=== PATIENT | female | born 1955 | race American Indian/Alaskan Native ===

== ENCOUNTER 2019-06-05 10:51 | Inpatient (IN) | payer MEDICARE, OTHER ==
[~2019-06-05] VITALS: Ht 167.6 cm; Wt 99.2 kg
[2019-06-05 11:37] LABS: Hemoglobin 10.4 g/dL (11.5-16.0); Mean Corpuscular HGB 31.3 pg (26.0-34.0); Mean Corpuscular HGB Conc 33.5 g/dL (31.5-36.5); Mean Corpuscular Volume 93 fL (80-100); Mean Platelet Volume 9.6 fL (9.1-12.4); Platelet Count 326 K/mm3 (150-400); RDW Coefficient Variation 13.4 % (11.7-14.2); RDW Standard Deviation 46.3 fL (35.1-46.3); Red Blood Cell Count 3.32 M/mm3 (3.80-5.20); White Blood Cell Count 13.56 K/mm3 (4.00-11.30)
[2019-06-05 11:57] LABS: Alanine Aminotransfer (ALT/SGP 121 U/L (12-78); Albumin, Blood 2.7 g/dL (3.4-5.0); Albumin/Globulin Ratio 0.5 (0.8-1.8); Alk Phos 223 U/L (50-136); Anion Gap 9 mmol/L (6-16); Aspartate Aminotrans (AST/SGOT 61 U/L (12-37); Bilirubin, Total 1.4 mg/dL (0.1-1.0); Blood Urea Nitrogen 33 mg/dL (8-24); Bun/Creatinine Ratio 18.8 (12.0-20.0); CO2, Blood 25 mmol/L (21-32); Calcium, Blood 8.9 mg/dL (8.5-10.1); Chloride, Blood 99 mmol/L (98-108); Creatinine, Blood 1.76 mg/dL (0.40-1.00); Glomerular Filtration Rate 31 (60-); Glucose, Blood 93 mg/dL (70-99); Potassium, Blood 3.3 mmol/L (3.5-5.5); Sodium, Blood 133 mmol/L (136-145); Total Protein, Blood 7.7 g/dL (6.4-8.2); Troponin I <0.015 ng/mL (0.000-0.040)
[2019-06-05 12:27] LABS: BAND PERCENT MAN 15 % (0-8); BASOPHILS PERCENT MAN 0 % (0-2); EOSINOPHILS PERCENT MAN 0 % (0-6); LYMPHOCYTES ABSOLUTE MAN 1.62 K/mm3 (0.84-5.20); LYMPHOCYTES PERCENT MAN 12 % (21-46); MONOCYTES ABSOLUTE MAN 0.13 K/mm3 (0.16-1.47); MONOCYTES PERCENT MAN 1 % (4-13); NEUTROPHILS ABSOLUTE MAN 11.66 K/mm3 (1.96-9.15); PROMYELOCYTE ABSOLUTE MAN 0.13 K/mm3 (0.00-0.00); PROMYELOCYTE PERCENT MAN 1 % (0-0); SEG NEUTROPHILS PERCENT MAN 71 % (41-73); TOTAL CELLS COUNTED 100
[2019-06-05] MEDS ORDERED: ATORVASTATIN CA40 MG PO (12:32)
[2019-06-05] MEDS ORDERED: SYNTHROID0.2 MG PO (12:32)
[2019-06-05 13:19] LABS: Source, Urine Clean Catch
[2019-06-05 13:27] LABS: Blood, Urine 5+ (Neg); Glucose Qualitative, Urine Neg (Neg); Ketones, Urine 1+ (Neg); Leukocyte Esterase, Urine 1+ (Neg); Nitrite, Urine Pos (Neg); Protein, Urine 3+ (Neg); Urobilinogen, Urine 3+ (Normal)
[2019-06-05 13:34] LABS: Appearance, Urine Cloudy (Clear); Bilirubin, Urine 1+ (Neg); Color, Urine Orange (P-Yellow)
[2019-06-05 13:47] LABS: Amorphous Light (0-Heavy); Bacteria Many /hpf; Mucus Light (0-Heavy); Squamous Epithelial Cells Mod /hpf (Few)
[2019-06-05 14:12] LABS: Free Thyroxine 0.22 ng/dL (0.70-1.60); Magnesium, Blood 2.3 mg/dL (1.6-2.4)
[2019-06-05 14:14] LABS: Thyroid Stimulating Hormone 72.2 uIU/mL (0.360-4.800)
[2019-06-05 14:35] LABS: Triiodothyronine, Free <0.50 pg/mL (2.18-3.98)
[2019-06-05 14:47] LABS: Phosphorus, Blood 2.9 mg/dL (2.5-4.9)
--- NOTE | 2019-06-05 17:14 | NUR ---
SHIFT SUMMARY PT ADMITTED THIS SHIFT. PT ARRIVED VIA GURNEY AT 1435. PT AXO TO SELF AND FOLLOWING DIRECTIONS THOUGH IS SLOW TO RESPOND AND A POOR HISTORIAN. 92 % ON 2L. ULTRASOUND BEING DONE AT THIS TIME PER ORDERS. BED IN LOW POSITION, CALL LIGHT WITHIN REACH, BED ALARM ON.
[2019-06-05 18:10] LABS: Bilirubin, Urine Neg (Neg); Blood, Urine 5+ (Neg); Glucose Qualitative, Urine Neg (Neg); Ketones, Urine 1+ (Neg); Leukocyte Esterase, Urine Neg (Neg); Nitrite, Urine Neg (Neg); Protein, Urine 3+ (Neg); Source, Urine Clean Catch; Specific Gravity, Urine 1.015 (1.003-1.022); Urobilinogen, Urine 3+ (Normal)
[2019-06-05 18:19] LABS: Appearance, Urine Hazy (Clear); Color, Urine Amber (P-Yellow)
[2019-06-05 18:22] LABS: Squamous Epithelial Cells Many /hpf (Few)
[2019-06-05 18:23] LABS: Bacteria Mod /hpf
[2019-06-06 05:22] LABS: Hematocrit 26.8 % (33.0-51.0); Hemoglobin 8.9 g/dL (11.5-16.0); Mean Corpuscular HGB 31.3 pg (26.0-34.0); Mean Corpuscular HGB Conc 33.2 g/dL (31.5-36.5); Mean Corpuscular Volume 94 fL (80-100); Mean Platelet Volume 9.7 fL (9.1-12.4); Platelet Count 317 K/mm3 (150-400); RDW Coefficient Variation 13.7 % (11.7-14.2); RDW Standard Deviation 47.6 fL (35.1-46.3); Red Blood Cell Count 2.84 M/mm3 (3.80-5.20); White Blood Cell Count 15.04 K/mm3 (4.00-11.30)
[2019-06-06 05:38] LABS: International Normalized Ratio 1.06; Prothrombin Time Results 11.3 Sec (9.7-11.5)
[2019-06-06 05:43] LABS: Percent Saturation 15.9 % (15.0-50.0)
[2019-06-06 05:49] LABS: Albumin, Blood 2.1 g/dL (3.4-5.0); Albumin/Globulin Ratio 0.5 (0.8-1.8); Bilirubin, Total 0.7 mg/dL (0.1-1.0); Bun/Creatinine Ratio 20.9 (12.0-20.0); Creatinine, Blood 1.48 mg/dL (0.40-1.00); Globulin, Blood 4.3 g/dL (2.2-4.0); Potassium, Blood 3.6 mmol/L (3.5-5.5); Total Protein, Blood 6.4 g/dL (6.4-8.2)
--- NOTE | 2019-06-06 05:50 | NUR ---
SHIFT SUMMARY PT ALERT AND ORIENTED. VERY SLOW TO RESPOND. APPEARS APPROPRIATE WITH RESPONSES. HOWEVER, PT IS FORGETFUL. PT WAS INCONTINENT THIS EVENING. ATTENDS IN PLACE. LARGE BLISTER DISCOVERED TO PT'S LEFT THIGH. PICTURES TAKEN AND PLACED IN CHART. WHEN ASKED, PT REPORTED THAT SHE HAD "FELL AND ACCIDENTLY STRADDLED A HEATER" REPORTING THAT HER BROTHER HAD TO "PUSH HER OFF OF IT" BECAUSE SHE "WASN'T STRONG ENOUGH TO LIFT HERSELF UP". PT IS VERY WEAK AND DECONDITIONED. SKIN DRY AND FLAKY. LOTION APPLIED TO BLE'S. LUNG SOUNDS DIMINISHED. RESPIRATIONS EVEN AND UNLABORED. STARTED SHIFT ON RA BUT ENDED UP BACK ON 2 L O2 NC TO KEEP SATS >90%. NO COMPLAINTS OF PAIN. VSS. WILL CONTINUE TO MONITOR.
[2019-06-06 05:56] LABS: BAND PERCENT MAN 15 % (0-8); BASOPHILS PERCENT MAN 0 % (0-2); EOSINOPHILS PERCENT MAN 0 % (0-6); LYMPHOCYTES ABSOLUTE MAN 1.05 K/mm3 (0.84-5.20); LYMPHOCYTES PERCENT MAN 7 % (21-46); METAMYELOCYTE ABSOLUTE MAN 0.15 K/mm3 (0.00-0.00); METAMYELOCYTE PERCENT MAN 1 % (0-0); MONOCYTES PERCENT MAN 0 % (4-13); MYELOCYTE ABSOLUTE MAN 0.15 K/mm3 (0.00-0.00); MYELOCYTE PERCENT MAN 1 % (0-0); NEUTROPHILS ABSOLUTE MAN 13.68 K/mm3 (1.96-9.15); SEG NEUTROPHILS PERCENT MAN 76 % (41-73); TOTAL CELLS COUNTED 100
--- NOTE | 2019-06-06 11:17 | NUR ---
Spiritual care visit conducted. Patient openly shares about her medical history, her family unit complications and her spiritual journey. Patient tells me about some of her concerns moving forward and about some of her spiritual needs. I listen empathically, normalize patient's experience and provide spiritual guidance, grief support, anxiety containment and prayer. Patient responds well and displays evidence of reduced stress. I also gave patient an Advance Directive booklet and some education around the importance and process of the advance directive form.
[2019-06-06 11:48] LABS: Adenovirus Not Detected (NOT DETECT); Bordetella pertussis Not Detected (NOT DETECT); Chlamydophila pneumoniae Not Detected (NOT DETECT); Coronavirus 229E Not Detected (NOT DETECT); Coronavirus HKU1 Not Detected (NOT DETECT); Coronavirus NL63 Not Detected (NOT DETECT); Coronavirus OC43 Not Detected (NOT DETECT); Human Metapneumovirus Not Detected (NOT DETECT); Human Rhinovirus/Enterovirus Not Detected (NOT DETECT); Influenza A Not Detected (NOT DETECT); Influenza A/2009-H1 Not Detected (NOT DETECT); Influenza A/H1 Not Detected (NOT DETECT); Influenza A/H3 Not Detected (NOT DETECT); Influenza B Not Detected (NOT DETECT); Mycoplasma pneumoniae Not Detected (NOT DETECT); Parainfluenza Virus 1 Not Detected (NOT DETECT); Parainfluenza Virus 2 Not Detected (NOT DETECT); Parainfluenza Virus 3 Not Detected (NOT DETECT); Parainfluenza Virus 4 Not Detected (NOT DETECT); Respiratory Syncytial Virus Not Detected (NOT DETECT)
--- NOTE | 2019-06-06 15:34 | NUR ---
SHIFT SUMMARY PT IS A/O X 4 WITH NO C/O PAIN. SHE IS SLOW TO RESPOND BUT THIS APPEARS TO BE HER BASELINE. SHE WORKED WITH THERAPY THIS MORNING AND GOT UP TO THE CHAIR BUT THEN QUICKLY REQUESTED TO GO BACK TO BED REPORTING THAT THE CHAIR WAS UNCOMFORTABLE. EDUCATION WAS COMPLETED WITH PATIENT ON THE IMPORTANCE OF BEING UP AND OUT OF BED AND DEEP BREATHING. LUNG SOUNDS ARE DIMINISHED AND SHE IS ON 2 LPM VIA N.C. NO SOB AND NO S/S OF RESPIRATORY DISTRESS. IV ABO AND FLUIDS HAVE INFUSED WITH NO ISSUE EXCEPT HER IV IS IN HER RIGHT AC AND IT IS OCCULDED WITH MOVEMENT, PT WAS AGREEABLE TO USING A SPLINT TO HELP KEEP HER ARM STRAIGHT AND THIS HAS BEEN EFFECTIVE. PT HAD A NIECE COME VISIT HER THIS MORNING BUT NO OTHER FAMILY. PT HAS GENERALIZED WEAKNESS AND A FAIR APPETITE AND FLUIDS HAVE BEEN ENCOURAGED. SHE IS ABLE TO MAKE HER NEEDS KNOWN. CALL LIGHT IS IN REACH.
--- NOTE | 2019-06-07 04:15 | NUR ---
SHIFT SUMMARY PT HAS RESTED MOST OF THE NIGHT AND HAS NOT HAD ANY COMPLAINTS. SHE IS A/OX4, BUT IS SLOW TO RESPOND. MAKES NEEDS KNOWN. IV ABX AND FLUIDS PER ORDERS. BLISTER TO THIGH REMAINS UNCHANGED FROM PHOTO IN CHART. VITALS STABLE. ASSESSMENT REMAINS UNCHANGED. BED IN LOWEST POSITION, CALL LIGHT WITHIN REACH. WILL CONTINUE TO MONITOR AND REPORT TO ONCOMING RN.
[2019-06-07 05:17] LABS: Hematocrit 27.2 % (33.0-51.0); Hemoglobin 8.7 g/dL (11.5-16.0); Mean Corpuscular HGB 30.7 pg (26.0-34.0); Mean Corpuscular Volume 96 fL (80-100); Mean Platelet Volume 9.5 fL (9.1-12.4); Platelet Count 341 K/mm3 (150-400); RDW Coefficient Variation 14.2 % (11.7-14.2); RDW Standard Deviation 50.4 fL (35.1-46.3); Red Blood Cell Count 2.83 M/mm3 (3.80-5.20); White Blood Cell Count 10.57 K/mm3 (4.00-11.30)
[2019-06-07 05:59] LABS: Albumin/Globulin Ratio 0.5 (0.8-1.8); BAND PERCENT MAN 7 % (0-8); BASOPHILS PERCENT MAN 1 % (0-2); Bilirubin, Total 0.5 mg/dL (0.1-1.0); Bun/Creatinine Ratio 20.1 (12.0-20.0); Calcium, Blood 8.1 mg/dL (8.5-10.1); Creatinine, Blood 1.49 mg/dL (0.40-1.00); EOSINOPHILS PERCENT MAN 1 % (0-6); Globulin, Blood 4.2 g/dL (2.2-4.0); LYMPHOCYTES ABSOLUTE MAN 1.47 K/mm3 (0.84-5.20); LYMPHOCYTES PERCENT MAN 14 % (21-46); METAMYELOCYTE PERCENT MAN 1 % (0-0); MONOCYTES PERCENT MAN 1 % (4-13); MYELOCYTE PERCENT MAN 1 % (0-0); NEUTROPHILS ABSOLUTE MAN 8.56 K/mm3 (1.96-9.15); Potassium, Blood 3.4 mmol/L (3.5-5.5); SEG NEUTROPHILS PERCENT MAN 74 % (41-73); TOTAL CELLS COUNTED 100; Total Protein, Blood 6.2 g/dL (6.4-8.2)
--- NOTE | 2019-06-07 18:13 | NUR ---
SHIFT SUMMARY- PT HAD A SHOWER TODAY. IV SITE WAS LEAKING AND WAS CHANGED. NEW SITE IS NOT POSSITIONAL. PER ISTRATE PT TO FINISH THIS BAG OF FLUIDS AND THEN WILL BE SL AFTER THAT. PT ALERT AND ORIENTED, FORGETFUL AT TIMES, BED ALARM FOR SAFETY. PT IS A 1PA FOR ALL TRANSFERS D/T WEAKNESS R/T PNEUMONIA. PT VERY SLOW TO RESPOND VERBALLY, BUT RESPONDS APPROPRIATELY TO QUESTIONS. WILL PASS ON IN BEDSIDE REPORT. PT IN BED CALL LIGHT IN REACH, NO S&S OF DISTRESS.
[2019-06-08 05:04] LABS: Hematocrit 28.8 % (33.0-51.0); Hemoglobin 9.3 g/dL (11.5-16.0); Mean Corpuscular HGB Conc 32.3 g/dL (31.5-36.5); Mean Corpuscular Volume 96 fL (80-100); Mean Platelet Volume 9.1 fL (9.1-12.4); Platelet Count 344 K/mm3 (150-400); RDW Coefficient Variation 14.5 % (11.7-14.2); RDW Standard Deviation 50.4 fL (35.1-46.3); White Blood Cell Count 7.64 K/mm3 (4.00-11.30)
[2019-06-08 05:26] LABS: Albumin, Blood 2.1 g/dL (3.4-5.0); Albumin/Globulin Ratio 0.5 (0.8-1.8); Bilirubin, Total 0.3 mg/dL (0.1-1.0); Bun/Creatinine Ratio 20.7 (12.0-20.0); Calcium, Blood 8.1 mg/dL (8.5-10.1); Creatinine, Blood 1.16 mg/dL (0.40-1.00); Potassium, Blood 3.5 mmol/L (3.5-5.5); Total Protein, Blood 6.1 g/dL (6.4-8.2)
[2019-06-08 05:32] LABS: BAND PERCENT MAN 3 % (0-8); BASOPHILS PERCENT MAN 0 % (0-2); EOSINOPHILS ABSOLUTE MAN 0.07 K/mm3 (0.00-0.68); EOSINOPHILS PERCENT MAN 1 % (0-6); LYMPHOCYTES ABSOLUTE MAN 1.52 K/mm3 (0.84-5.20); LYMPHOCYTES PERCENT MAN 20 % (21-46); METAMYELOCYTE ABSOLUTE MAN 0.07 K/mm3 (0.00-0.00); METAMYELOCYTE PERCENT MAN 1 % (0-0); MONOCYTES PERCENT MAN 4 % (4-13); NEUTROPHILS ABSOLUTE MAN 5.65 K/mm3 (1.96-9.15); SEG NEUTROPHILS PERCENT MAN 71 % (41-73); TOTAL CELLS COUNTED 100
--- NOTE | 2019-06-08 06:26 | NUR ---
SHIFT SUMMARY PATIENT VERY PLEASANT TO WORK WITH OVERNIGHT. WAS ABLE TO SLEEP WELL MOST OF THE NIGHT AN HAD MINIMAL NEEDS. PATIENT CURRENTLY ON 2 LITERS O2 VIA NASAL CANULA. IV PATENT AND FLUSHED, NOW SALINE LOCKED. BED IN LOWEST POSITION WITH WHEELS LOCKED AND ALARM ON. CALL LIGHT WITHIN REACH. REPORT GIVEN TO ONCOMING RN.
--- NOTE | 2019-06-08 07:20 | NUR ---
ASSUMED CARE OF PT- BEDSIDE REPORT COMPLETED WITH NIGHT MOUNA PRADHAN. PT HAS HAD NO ACUTE CHANGE T/O THE NIGHT. PT ALERT IN BED CALL LIGHT IN REACH. POSSIBLE DISCHARGE TODAY IF PT CONTINUES TO IMPROVE. PT SLOW TO RESPOND BUT A&O X4.
[2019-06-08] MEDS ORDERED: ACET325 PO (11:03)
[2019-06-08] MEDS ORDERED: AZIT500 PO (11:04)
[2019-06-08] MEDS ORDERED: ASCO500 PO (11:04)
[2019-06-08] MEDS ORDERED: ALBU90OI INH (11:04)
[2019-06-08] MEDS ORDERED: CEFP200 PO (11:04)
[2019-06-08] MEDS ORDERED: FERSU300 PO (11:05)
[2019-06-08] MEDS ORDERED: GUAI600T33 PO (11:05)
[2019-06-08] MEDS ORDERED: METF500 PO (11:06)
[2019-06-08] MEDS ORDERED: ONDA4ODT PO (11:06)
[2019-06-08] MEDS ORDERED: HYDR10 PO (11:06)
--- NOTE | 2019-06-08 14:18 | NUR ---
DISCHARGE NOTE- PT NEPHEW RECIEVED DETAILED VERBAL AND WRITTEN DISCHARGE INSTRUCTIONS. HE ASKED APPROPRIATE QUESTIONS AND ACKNOWLEDGED UNDERSTANDING OF THEM. PT [facility] PER THEIR REQUEST. PT HAS HAD NO EPISODES OF CHEST PAIN. HOME O2 EVAL SHOWED PT DOES NOT NEED HOME OXYGEN. PT DISCHARGED BACK HOME ON PO ANTIBIOTICS. PT ESCORTED OUT VIA WC BY THE [employer] SUPERVISOR, NO FURTHER QUESTIONS AT THE TIME OF DISCHARGE.
== END 2019-06-08 12:34 | disposition home health service (06) | DRG 193 ==
LOC: ER 10:51 → MEDS 12:50 → ENPENDDIS 06-08 11:00 → MEDS 06-08 12:34
PROVIDERS: Emergency Medicine; Family Medicine; Nurse Practitioner Acute Care; ADMIT Family Medicine
DX: J18.9 Pneumonia, unspecified organism (principal); J96.21 Acute and chronic respiratory failure with hypoxia; N39.0 Urinary tract infection, site not specified; N17.9 Acute kidney failure, unspecified; F17.210 Nicotine dependence, cigarettes, uncomplicated; E03.9 Hypothyroidism, unspecified; Z91.19 Patient's noncompliance with other medical treatment and regimen; I12.9 Hypertensive chronic kidney disease with stage 1 through stage 4 chronic kidney disease, or unspecified chronic kidney disease; E11.22 Type 2 diabetes mellitus with diabetic chronic kidney disease; N18.3 Chronic kidney disease, stage 3 (moderate); E87.6 Hypokalemia; D50.9 Iron deficiency anemia, unspecified; E78.5 Hyperlipidemia, unspecified; B96.20 Unspecified Escherichia coli [E. coli] as the cause of diseases classified elsewhere; K59.00 Constipation, unspecified; Z66 Do not resuscitate; D63.1 Anemia in chronic kidney disease
CPT/HCPCS: 0099U; 36415; 71045; 71046; 73620; 76700; 76857; 80053; 81001; 82550; 82607; 82728; 82746; 82947; 83036; 83540; 83550; 83605; 83735; 83880; 84100; 84439; 84443; 84481; 84484; 85025; 85610; 87040; 87077; 87086; 87186; 87449; 90686; 93005; 93010; 94760; 94761; 96361; 96365; 96375; 97110; 97116; 97162; 97166; 97530; 97535; 99285-25; G0008; J0456; J0696; J1650; J7030; J7050; J7120

== ENCOUNTER 2020-06-03 22:39 | Emergency (ER) | payer MEDICARE, OTHER ==
[~2020-06-03] VITALS: Ht 170.2 cm; Wt 77.1 kg
[~2020-06-03 22:39] MED LIST: ACET325 PO; ALBU90OI INH; ASCO500 PO; ATORVASTATIN CA40 MG PO; AZIT500 PO; CEFP200 PO; EUTHYROX125 MCG PO; FERSU300 PO; GUAI600T33 PO; HYDR10 PO; METF500 PO; ONDA4ODT PO
[2020-06-03 23:08] LABS: BASOPHILS ABSOLUTE AUTO 0.04 K/mm3 (0.00-0.23); BASOPHILS PERCENT AUTO 1 % (0-2); EOSINOPHILS ABSOLUTE AUTO 0.07 K/mm3 (0.00-0.68); EOSINOPHILS PERCENT AUTO 1 % (0-6); Hematocrit 34.7 % (33.0-51.0); Hemoglobin 11.4 g/dL (11.5-16.0); IMMATURE GRAN ABSOLUTE AUTO 0.02 K/mm3 (0.00-0.10); IMMATURE GRAN PERCENT AUTO 0 % (0-1); LYMPHOCYTES ABSOLUTE AUTO 0.74 K/mm3 (0.84-5.20); LYMPHOCYTES PERCENT AUTO 10 % (21-46); MONOCYTES ABSOLUTE AUTO 0.44 K/mm3 (0.16-1.47); MONOCYTES PERCENT AUTO 6 % (4-13); Mean Corpuscular HGB 30.8 pg (26.0-34.0); Mean Corpuscular HGB Conc 32.9 g/dL (31.5-36.5); Mean Corpuscular Volume 94 fL (80-100); Mean Platelet Volume 9.4 fL (9.1-12.4); NEUTROPHILS ABSOLUTE AUTO 6.03 K/mm3 (1.96-9.15); NEUTROPHILS PERCENT AUTO 82 % (41-73); Platelet Count 310 K/mm3 (150-400); RDW Coefficient Variation 12.9 % (11.7-14.2); RDW Standard Deviation 44.9 fL (35.1-46.3); White Blood Cell Count 7.34 K/mm3 (4.00-11.30)
[2020-06-03 23:22] LABS: Anion Gap 7 mmol/L (6-16); Blood Urea Nitrogen 34 mg/dL (8-24); Bun/Creatinine Ratio 34.9 (12.0-20.0); CO2, Blood 33 mmol/L (21-32); Calcium, Blood 9.2 mg/dL (8.5-10.1); Chloride, Blood 101 mmol/L (98-108); Creatinine, Blood 0.98 mg/dL (0.40-1.00); Glomerular Filtration Rate >60 (60-); Glucose, Blood 134 mg/dL (70-99); Potassium, Blood 3.1 mmol/L (3.5-5.5); Sodium, Blood 141 mmol/L (136-145)
[2020-06-03 23:32] LABS: Source, Urine Clean Catch
[2020-06-03 23:33] LABS: Bilirubin, Urine Neg (Neg); Blood, Urine 2+ (Neg); Glucose Qualitative, Urine Neg (Neg); Ketones, Urine Neg (Neg); Leukocyte Esterase, Urine Neg (Neg); Nitrite, Urine Neg (Neg); Protein, Urine 2+ (Neg); Specific Gravity, Urine 1.015 (1.003-1.022); Urobilinogen, Urine 1+ (Normal)
[2020-06-03 23:41] LABS: Appearance, Urine Clear (Clear); Color, Urine Yellow (P-Yellow)
[2020-06-03 23:52] LABS: Bacteria Not Seen /hpf; Red Blood Cells, Urine 0-2 /hpf (0-2); Squamous Epithelial Cells Rare /hpf (Few); White Blood Cells, Urine Not Seen /hpf (0-5)
== END 2020-06-04 02:35 | disposition home or self-care (01) ==
LOC: ER 22:39
PROVIDERS: Emergency Medicine
DX: E87.6 Hypokalemia (principal)
CPT/HCPCS: 51701; 80048; 81001; 85025; 99283-25; A9270

== ENCOUNTER 2020-06-11 15:43 | Emergency (ER) | payer MEDICARE, OTHER ==
[~2020-06-11] VITALS: Ht 170.2 cm; Wt 101.6 kg
[2020-06-11 16:27] LABS: BASOPHILS ABSOLUTE AUTO 0.06 K/mm3 (0.00-0.23); BASOPHILS PERCENT AUTO 1 % (0-2); EOSINOPHILS ABSOLUTE AUTO 0.11 K/mm3 (0.00-0.68); EOSINOPHILS PERCENT AUTO 1 % (0-6); Hematocrit 33.6 % (33.0-51.0); Hemoglobin 10.9 g/dL (11.5-16.0); IMMATURE GRAN ABSOLUTE AUTO 0.02 K/mm3 (0.00-0.10); IMMATURE GRAN PERCENT AUTO 0 % (0-1); LYMPHOCYTES ABSOLUTE AUTO 1.06 K/mm3 (0.84-5.20); LYMPHOCYTES PERCENT AUTO 14 % (21-46); MONOCYTES ABSOLUTE AUTO 0.68 K/mm3 (0.16-1.47); MONOCYTES PERCENT AUTO 9 % (4-13); Mean Corpuscular HGB 30.7 pg (26.0-34.0); Mean Corpuscular HGB Conc 32.4 g/dL (31.5-36.5); Mean Corpuscular Volume 95 fL (80-100); Mean Platelet Volume 9.8 fL (9.1-12.4); NEUTROPHILS PERCENT AUTO 75 % (41-73); Platelet Count 343 K/mm3 (150-400); RDW Coefficient Variation 12.8 % (11.7-14.2); RDW Standard Deviation 44.4 fL (35.1-46.3); Red Blood Cell Count 3.55 M/mm3 (3.80-5.20); White Blood Cell Count 7.73 K/mm3 (4.00-11.30)
[2020-06-11 16:39] LABS: Alanine Aminotransfer (ALT/SGP 23 U/L (12-78); Albumin, Blood 3.2 g/dL (3.4-5.0); Albumin/Globulin Ratio 0.8 (0.8-1.8); Alk Phos 106 U/L (50-136); Anion Gap 5 mmol/L (6-16); Aspartate Aminotrans (AST/SGOT 19 U/L (12-37); Bilirubin, Total 0.8 mg/dL (0.1-1.0); Blood Urea Nitrogen 39 mg/dL (8-24); Bun/Creatinine Ratio 46.6 (12.0-20.0); CO2, Blood 35 mmol/L (21-32); Calcium, Blood 9.2 mg/dL (8.5-10.1); Chloride, Blood 103 mmol/L (98-108); Creatinine, Blood 0.84 mg/dL (0.40-1.00); Globulin, Blood 4.2 g/dL (2.2-4.0); Glomerular Filtration Rate >60 (60-); Glucose, Blood 104 mg/dL (70-99); Potassium, Blood 2.8 mmol/L (3.5-5.5); Sodium, Blood 143 mmol/L (136-145); Total Protein, Blood 7.4 g/dL (6.4-8.2)
[2020-06-11 17:19] LABS: Free Thyroxine 3.14 ng/dL (0.70-1.60)
[2020-06-11 17:20] LABS: Thyroid Stimulating Hormone 0.352 uIU/mL (0.360-4.800)
[2020-06-11] MEDS ORDERED: K-Dur20 MEQ PO (21:22)
== END 2020-06-11 21:40 | disposition home or self-care (01) ==
LOC: ER 15:43
PROVIDERS: Physician Assistant
DX: E87.6 Hypokalemia (principal); E03.9 Hypothyroidism, unspecified; E78.5 Hyperlipidemia, unspecified; I10 Essential (primary) hypertension; E11.40 Type 2 diabetes mellitus with diabetic neuropathy, unspecified; F17.210 Nicotine dependence, cigarettes, uncomplicated; Z88.0 Allergy status to penicillin; Z79.84 Long term (current) use of oral hypoglycemic drugs; Z79.899 Other long term (current) drug therapy
CPT/HCPCS: 80053; 83735; 84439; 84443; 85025; 93005; 93010; 96361; 96365; 96366; 99285-25; A9270; J3480; J7030

== ENCOUNTER 2020-06-16 16:55 | Inpatient (IN) | payer MEDICARE, OTHER ==
[~2020-06-16] VITALS: Ht 167.6 cm; Wt 77.0 kg
[~2020-06-16 16:55] MED LIST changes: +K-Dur20 MEQ PO
[2020-06-16 17:33] LABS: BASOPHILS ABSOLUTE AUTO 0.04 K/mm3 (0.00-0.23); BASOPHILS PERCENT AUTO 0 % (0-2); EOSINOPHILS ABSOLUTE AUTO 0.08 K/mm3 (0.00-0.68); EOSINOPHILS PERCENT AUTO 1 % (0-6); Hematocrit 33.8 % (33.0-51.0); Hemoglobin 10.9 g/dL (11.5-16.0); IMMATURE GRAN ABSOLUTE AUTO 0.03 K/mm3 (0.00-0.10); IMMATURE GRAN PERCENT AUTO 0 % (0-1); LYMPHOCYTES ABSOLUTE AUTO 1.15 K/mm3 (0.84-5.20); LYMPHOCYTES PERCENT AUTO 12 % (21-46); MONOCYTES ABSOLUTE AUTO 0.76 K/mm3 (0.16-1.47); MONOCYTES PERCENT AUTO 8 % (4-13); Mean Corpuscular HGB 30.5 pg (26.0-34.0); Mean Corpuscular HGB Conc 32.2 g/dL (31.5-36.5); Mean Corpuscular Volume 95 fL (80-100); Mean Platelet Volume 9.5 fL (9.1-12.4); NEUTROPHILS ABSOLUTE AUTO 7.26 K/mm3 (1.96-9.15); NEUTROPHILS PERCENT AUTO 78 % (41-73); Platelet Count 344 K/mm3 (150-400); RDW Coefficient Variation 12.4 % (11.7-14.2); RDW Standard Deviation 43.5 fL (35.1-46.3); Red Blood Cell Count 3.57 M/mm3 (3.80-5.20); White Blood Cell Count 9.32 K/mm3 (4.00-11.30)
[2020-06-16 17:45] LABS: Albumin, Blood 3.7 g/dL (3.4-5.0); Bilirubin, Total 1.1 mg/dL (0.1-1.0); Bun/Creatinine Ratio 20.7 (12.0-20.0); Calcium, Blood 9.2 mg/dL (8.5-10.1); Creatinine, Blood 1.84 mg/dL (0.40-1.00); Globulin, Blood 3.6 g/dL (2.2-4.0); Potassium, Blood 3.9 mmol/L (3.5-5.5); Total Protein, Blood 7.3 g/dL (6.4-8.2)
[2020-06-17 02:13] LABS: Source, Urine Clean Catch
[2020-06-17 02:23] LABS: Bilirubin, Urine Neg (Neg); Blood, Urine 1+ (Neg); Glucose Qualitative, Urine Neg (Neg); Ketones, Urine 2+ (Neg); Leukocyte Esterase, Urine Neg (Neg); Nitrite, Urine Neg (Neg); Protein, Urine Neg (Neg); Specific Gravity, Urine 1.015 (1.003-1.022); Urobilinogen, Urine 2+ (Normal); pH, Urine 6.5 (5.0-8.0)
[2020-06-17 02:28] LABS: Appearance, Urine Clear (Clear); Color, Urine Yellow (P-Yellow)
[2020-06-17 02:31] LABS: Bacteria Mod /hpf; Red Blood Cells, Urine 0-2 /hpf (0-2); Squamous Epithelial Cells Few /hpf (Few); White Blood Cells, Urine 0-2 /hpf (0-5)
--- NOTE | 2020-06-17 05:00 | NUR ---
06/17/20 0500 PT WATCHING TV. CONFUSED TO SURROUNDINGS AND WAS REORIENTED THROUGHOUT SHIFT. DENIES ANY PAIN. MARTI CATH INSERTED PER MD ORDER TO OBTAIN ADEQUATE URINE SAMPLE FOR TESTING AND THEN DC. HEART MONITOR STABLE. REPOSITIONED Q 2 HOURS WITH PILLOWS.
[2020-06-17 05:41] LABS: BASOPHILS ABSOLUTE AUTO 0.04 K/mm3 (0.00-0.23); BASOPHILS PERCENT AUTO 1 % (0-2); EOSINOPHILS PERCENT AUTO 1 % (0-6); Hematocrit 33.2 % (33.0-51.0); Hemoglobin 10.6 g/dL (11.5-16.0); IMMATURE GRAN ABSOLUTE AUTO 0.04 K/mm3 (0.00-0.10); IMMATURE GRAN PERCENT AUTO 1 % (0-1); LYMPHOCYTES ABSOLUTE AUTO 1.11 K/mm3 (0.84-5.20); LYMPHOCYTES PERCENT AUTO 13 % (21-46); MONOCYTES PERCENT AUTO 8 % (4-13); Mean Corpuscular HGB 29.9 pg (26.0-34.0); Mean Corpuscular HGB Conc 31.9 g/dL (31.5-36.5); Mean Corpuscular Volume 94 fL (80-100); Mean Platelet Volume 9.9 fL (9.1-12.4); NEUTROPHILS ABSOLUTE AUTO 6.86 K/mm3 (1.96-9.15); NEUTROPHILS PERCENT AUTO 78 % (41-73); Platelet Count 356 K/mm3 (150-400); RDW Coefficient Variation 12.3 % (11.7-14.2); RDW Standard Deviation 42.5 fL (35.1-46.3); Red Blood Cell Count 3.55 M/mm3 (3.80-5.20); White Blood Cell Count 8.85 K/mm3 (4.00-11.30)
[2020-06-17 06:03] LABS: Alanine Aminotransfer (ALT/SGP 23 U/L (12-78); Albumin, Blood 2.6 g/dL (3.4-5.0); Albumin/Globulin Ratio 0.6 (0.8-1.8); Alk Phos 91 U/L (50-136); Anion Gap 7 mmol/L (6-16); Aspartate Aminotrans (AST/SGOT 28 U/L (12-37); Bilirubin, Total 0.9 mg/dL (0.1-1.0); Blood Urea Nitrogen 34 mg/dL (8-24); Bun/Creatinine Ratio 45.8 (12.0-20.0); CO2, Blood 31 mmol/L (21-32); Calcium, Blood 8.6 mg/dL (8.5-10.1); Chloride, Blood 102 mmol/L (98-108); Creatinine, Blood 0.74 mg/dL (0.40-1.00); Globulin, Blood 4.3 g/dL (2.2-4.0); Glomerular Filtration Rate >60 (60-); Glucose, Blood 92 mg/dL (70-99); Potassium, Blood 3.3 mmol/L (3.5-5.5); Sodium, Blood 140 mmol/L (136-145); Total Protein, Blood 6.9 g/dL (6.4-8.2)
[2020-06-17] MEDS ORDERED: CHLO25B PO (10:58)
[2020-06-17] MEDS ORDERED: ASPI81CH PO (10:59)
[2020-06-17] MEDS ORDERED: LOSA50 PO (10:59)
--- NOTE | 2020-06-17 12:27 | NUR ---
Echocardiogram using 9.0ml of agitated saline contrast performed by Isela Mccartney under my supervision.
[2020-06-17 14:29] LABS: Percent Saturation 16.3 % (15.0-50.0)
--- NOTE | 2020-06-17 18:20 | NUR ---
PT URINATED ONCE THIS SHIFT (BLADDER SCAN IN AFTERNOON SHOWED 216ML, URINATED IN BED DYKES SHORTLY AFTER THIS ABOUT 200ML). CALLED DR ELLIOTT TO INFORM OF PT ONLY URINATING ONCE THSI SHIFT, HE ORDERED NS @ 75ML/HR
--- NOTE | 2020-06-17 18:32 | NUR ---
SHIFT SUMMARY CADENCE DENIED PAIN THIS SHIFT. CONFUSED. SPOKE TO FAMILY, DAUGHTER VISITED BEDSIDE. PT HAD CAROTID U/S, ECHOCARDIOGRAM, MRI AND MRA. R SIDE DEFICIT NOTED. PT AND OT WORKED WITH PT. AUTO BODY CUSTOMIZER CHANGED HER TO NECTAR THICK BY SPOON. TOOK PILLS WITH APPLESAUCE BUT DOES HAVE TROUBLE WITH POCKETING PILLS. INCONT STOOL X2 THIS SHIFT BUT CONTINENT URINE IN BED DYKES. LOW UO (NOT RETAINING), DOCTOR ORDERED MIVF. DOES HAVE SMALL PRESURE ULCER ON COCCYX, CALAZIME APPLIED. CALL LIGHT IN REACH, FREQUENT CHECKS, WCTM
--- NOTE | 2020-06-18 04:16 | NUR ---
SHIFT SUMMARY: A/OX1. SPEECH IS SOMEWHAT GARBLED. VERY SLIGHT L FACIAL DROOP APPARENT IN EYEBROW AND SMILE. R BOUNTY TRAPPER NOTABLY WEAKER THAN L. BLE WEAK. PT REPORTS N/T IN BLE ONLY. IV FLUIDS INFUSING PER ORDERS. PT HAS HAD INCONTINENT VOIDS TONIGHT. DENIES PAIN. REMAINS IN BED. ERIC NECTAR THICK FLUIDS WELL. NO ACUTE CHANGES OVERNIGHT. WCTM.
[2020-06-18 05:43] LABS: BASOPHILS ABSOLUTE AUTO 0.04 K/mm3 (0.00-0.23); BASOPHILS PERCENT AUTO 1 % (0-2); EOSINOPHILS ABSOLUTE AUTO 0.21 K/mm3 (0.00-0.68); EOSINOPHILS PERCENT AUTO 3 % (0-6); Hematocrit 31.7 % (33.0-51.0); Hemoglobin 10.1 g/dL (11.5-16.0); IMMATURE GRAN ABSOLUTE AUTO 0.03 K/mm3 (0.00-0.10); IMMATURE GRAN PERCENT AUTO 0 % (0-1); LYMPHOCYTES ABSOLUTE AUTO 1.96 K/mm3 (0.84-5.20); LYMPHOCYTES PERCENT AUTO 25 % (21-46); MONOCYTES ABSOLUTE AUTO 0.65 K/mm3 (0.16-1.47); MONOCYTES PERCENT AUTO 8 % (4-13); Mean Corpuscular HGB 30.1 pg (26.0-34.0); Mean Corpuscular HGB Conc 31.9 g/dL (31.5-36.5); Mean Corpuscular Volume 95 fL (80-100); Mean Platelet Volume 9.6 fL (9.1-12.4); NEUTROPHILS ABSOLUTE AUTO 4.93 K/mm3 (1.96-9.15); NEUTROPHILS PERCENT AUTO 63 % (41-73); Platelet Count 331 K/mm3 (150-400); RDW Coefficient Variation 12.7 % (11.7-14.2); RDW Standard Deviation 44.5 fL (35.1-46.3); Red Blood Cell Count 3.35 M/mm3 (3.80-5.20); White Blood Cell Count 7.82 K/mm3 (4.00-11.30)
[2020-06-18 06:23] LABS: Anion Gap 7 mmol/L (6-16); Blood Urea Nitrogen 27 mg/dL (8-24); Bun/Creatinine Ratio 42.5 (12.0-20.0); CO2, Blood 27 mmol/L (21-32); Calcium, Blood 8.7 mg/dL (8.5-10.1); Chloride, Blood 108 mmol/L (98-108); Creatinine, Blood 0.64 mg/dL (0.40-1.00); Free Thyroxine 2.29 ng/dL (0.70-1.60); Glomerular Filtration Rate >60 (60-); Glucose, Blood 89 mg/dL (70-99); Potassium, Blood 3.5 mmol/L (3.5-5.5); Sodium, Blood 142 mmol/L (136-145); Thyroid Stimulating Hormone 0.337 uIU/mL (0.360-4.800)
--- NOTE | 2020-06-18 16:56 | NUR ---
SHIFT SUMMARY PT IS AOX1-2. PT DENIES PAIN, N/V, SOB. PT IS MINIMALLY VERBAL TODAY, BUT USED MORE SPEECH THIS RENATO. PT WAS SEEN BY PT/OT TODAY AND QUALIFIES FOR SNF DC TOMORROW. THIS RN DID A COVID SWAB FOR PT AND SENT TO LAB FOR SNF DC. PT DEMONSTRATES MODERATE APPETITE. PT REQUIRES FREQUENT REPOSITIONING. PT HAD NO VISITORS THIS RENATO. THIS RN SPOKE TO [facility] ABOUT PT PROGRESS. PT IS IN BED, CALL LIGHT IN REACH, BED IN LOW POSITION.
[2020-06-18 17:23] LABS: Influenza A, PCR Negative (NEGATIVE); Influenza B, PCR Negative (NEGATIVE); Resp Syncytial Virus, PCR Negative (NEGATIVE); SARS-Cov-2 (COVID-19) PCR, MMC Negative (NEGATIVE)
--- NOTE | 2020-06-19 04:20 | NUR ---
SHIFT SUMMARY: VSS. AFEB. A/OX1 AT LEAST. SPEECH IS SLOW, SLIGHTLY SLURRED AND PT SPEAKS MINIMALLY- DIFFICULT TO ASCERTAIN ORIENTATION. CONT W/ MINIMAL L SIDED FACIAL DROOP. R UPPER AND L EXT WEAKNESS. PT REPORTS NUMBNESS ONLY AFFECTING BLE. INCONT. DENIES PAIN. APPEARS TO SLEEP WELL WHEN UNDISTURBED. NO ACUTE OVERNIGHT EVENTS. WCTM.
--- NOTE | 2020-06-19 11:25 | NUR ---
DISCHARGE NOTE- PT DISCHARGED TO IN PT REHAB UNIT IN [place]. PT WAS TAKEN VIA WC TRANSPORT, ATTENDS CHANGED, IV DC'D NEW MEPILEX PLACED OVER SORE ON PT RIGHT BUTTOCK. BEDBATH COMPLETED, NO S&S OF DISTRESS NOTED AT THE TIME OF DISCHARGE.
[2020-06-19] MEDS ORDERED: CLOP75 PO (13:08)
[2020-06-19] MEDS ORDERED: HYDR10 PO (13:08)
--- NOTE | 2020-06-19 15:20 | NUR ---
RECIEVED A CALL FROM [facility] WHERE THE PT WAS DISCHARGED. THEY ARE REQUESTING A NON-ELECTRONICALLY SIGNED MEDICATION LIST. GAVE A FULL REPORT FOR PT DISCHARGE. CALLED DISCHARGE PLANNING TO ATTEMPT TO GET THE DOCUMENTS THEY NEED. FAX NUMBER TO THEIR PHARMACY .
== END 2020-06-19 11:05 | DRG 64 ==
LOC: ER 16:55 → MEDS 16:56 → ENPENDDIS 06-19 08:27 → MEDS 06-19 11:05
PROVIDERS: Internal Medicine; Student in an Organized Health Care Education/Training Program; ADMIT Internal Medicine
DX: I63.233 Cerebral infarction due to unspecified occlusion or stenosis of bilateral carotid arteries (principal); G92 Toxic encephalopathy; G81.91 Hemiplegia, unspecified affecting right dominant side; N17.9 Acute kidney failure, unspecified; R29.810 Facial weakness; R47.01 Aphasia; I12.9 Hypertensive chronic kidney disease with stage 1 through stage 4 chronic kidney disease, or unspecified chronic kidney disease; N18.30 Chronic kidney disease, stage 3 unspecified; F17.210 Nicotine dependence, cigarettes, uncomplicated; E87.6 Hypokalemia; E78.5 Hyperlipidemia, unspecified; J44.9 Chronic obstructive pulmonary disease, unspecified; D50.9 Iron deficiency anemia, unspecified; E03.9 Hypothyroidism, unspecified
CPT/HCPCS: 0241U; 36415; 70450; 70544; 70553; 80048; 80053; 81001; 82728; 82947; 83540; 83550; 84439; 84443; 85025; 87086; 92526; 92610; 93005; 93010; 93306; 93880; 94760; 96360; 96361; 97110; 97112; 97163; 97166; 97530; 99285-25; A9270; A9579; G0378; J1650; J2916; J7030

== ENCOUNTER → 2021-09-20 | Outpatient (CLI) | payer MEDICARE, OTHER ==
[~2021-09-20] MED LIST changes: +ASPI81CH PO; +CHLO25B PO; +CLOP75 PO; +LOSA50 PO
[2021-09-22 11:58] LABS: Source, Urine Clean Catch
[2021-09-22 13:41] LABS: Appearance, Urine Cloudy (Clear); Bilirubin, Urine Neg (Neg); Blood, Urine 2+ (Neg); Color, Urine Yellow (P-Yellow); Glucose Qualitative, Urine Neg (Neg); Ketones, Urine 1+ (Neg); Leukocyte Esterase, Urine 3+ (Neg); Nitrite, Urine Neg (Neg); Protein, Urine 3+ (Neg); Specific Gravity, Urine 1.015 (1.003-1.022); Urobilinogen, Urine NORM (Normal)
[2021-09-22 14:00] LABS: White Blood Cells, Urine TNTC /hpf (0-5)
[2021-09-22 14:01] LABS: Bacteria Many /hpf; Squamous Epithelial Cells Few /hpf (Few); Transitional Epithelial Cells Few /hpf (0-Rare)
== END | disposition home or self-care (01) ==
LOC: LAB SHORT 13:00
PROVIDERS: Family Medicine
DX: N39.0 Urinary tract infection, site not specified (principal)
CPT/HCPCS: 81001; 87077; 87086; 87186

== ENCOUNTER → 2021-10-07 | Outpatient (CLI) | payer MEDICARE, OTHER ==
[2021-10-07 12:09] LABS: Source, Urine Clean Catch
[2021-10-07 13:00] LABS: Appearance, Urine Cloudy (Clear); Bilirubin, Urine Neg (Neg); Blood, Urine 5+ (Neg); Color, Urine Yellow (P-Yellow); Glucose Qualitative, Urine Neg (Neg); Ketones, Urine Neg (Neg); Leukocyte Esterase, Urine 3+ (Neg); Nitrite, Urine Pos (Neg); Protein, Urine 1+ (Neg); Specific Gravity, Urine 1.015 (1.003-1.022); Urobilinogen, Urine NORM (Normal)
[2021-10-07 13:13] LABS: White Blood Cells, Urine 25-50 /hpf (0-5)
[2021-10-07 13:15] LABS: Bacteria Many /hpf; Squamous Epithelial Cells Rare /hpf (Few)
== END | disposition home or self-care (01) ==
LOC: LAB SHORT 05:50
PROVIDERS: Family Medicine
DX: N39.0 Urinary tract infection, site not specified (principal)
CPT/HCPCS: 81001

== ENCOUNTER → 2021-10-25 | Outpatient (CLI) | payer MEDICARE, OTHER ==
[2021-10-25 18:29] LABS: Source, Urine Clean Catch
[2021-10-25 19:02] LABS: Appearance, Urine Cloudy (Clear); Bilirubin, Urine Neg (Neg); Blood, Urine 2+ (Neg); Color, Urine Yellow (P-Yellow); Glucose Qualitative, Urine Neg (Neg); Ketones, Urine Neg (Neg); Leukocyte Esterase, Urine 3+ (Neg); Nitrite, Urine Pos (Neg); Protein, Urine 2+ (Neg); Specific Gravity, Urine 1.015 (1.003-1.022); Urobilinogen, Urine NORM (Normal)
[2021-10-25 19:14] LABS: Bacteria Many /hpf; Hyaline Casts 0-2 /lpf (0-2); Squamous Epithelial Cells Mod /hpf (Few); White Blood Cells, Urine 50-100 /hpf (0-5)
== END | disposition home or self-care (01) ==
LOC: LAB SHORT 18:27
PROVIDERS: Family Medicine
DX: N39.0 Urinary tract infection, site not specified (principal)
CPT/HCPCS: 81001; 87077; 87086; 87186

== ENCOUNTER 2021-11-10 12:23 | Inpatient (IN) | payer MEDICARE, OTHER ==
[~2021-11-10] VITALS: Ht 167.6 cm; Wt 92.2 kg
[2021-11-10 12:43] LABS: BASOPHILS ABSOLUTE AUTO 0.06 K/mm3 (0.00-0.23); BASOPHILS PERCENT AUTO 1 % (0-2); EOSINOPHILS ABSOLUTE AUTO 0.12 K/mm3 (0.00-0.68); EOSINOPHILS PERCENT AUTO 1 % (0-6); Hematocrit 42.3 % (33.0-51.0); Hemoglobin 13.2 g/dL (11.5-16.0); IMMATURE GRAN ABSOLUTE AUTO 0.07 K/mm3 (0.00-0.10); IMMATURE GRAN PERCENT AUTO 1 % (0-1); LYMPHOCYTES ABSOLUTE AUTO 3.91 K/mm3 (0.84-5.20); LYMPHOCYTES PERCENT AUTO 45 % (21-46); MONOCYTES ABSOLUTE AUTO 0.42 K/mm3 (0.16-1.47); MONOCYTES PERCENT AUTO 5 % (4-13); Mean Corpuscular HGB 29.4 pg (26.0-34.0); Mean Corpuscular HGB Conc 31.2 g/dL (31.5-36.5); Mean Corpuscular Volume 94 fL (80-100); Mean Platelet Volume 9.6 fL (9.1-12.4); NEUTROPHILS ABSOLUTE AUTO 4.19 K/mm3 (1.96-9.15); NEUTROPHILS PERCENT AUTO 48 % (41-73); Platelet Count 444 K/mm3 (150-400); RDW Coefficient Variation 13.5 % (11.7-14.2); RDW Standard Deviation 47.1 fL (35.1-46.3); Red Blood Cell Count 4.49 M/mm3 (3.80-5.20); White Blood Cell Count 8.77 K/mm3 (4.00-11.30)
[2021-11-10 12:58] LABS: Albumin, Blood 3.2 g/dL (3.4-5.0); Albumin/Globulin Ratio 0.7 (0.8-1.8); Bilirubin, Total 0.3 mg/dL (0.1-1.0); Bun/Creatinine Ratio 21.2 (12.0-20.0); Creatinine, Blood 1.18 mg/dL (0.40-1.00); Globulin, Blood 4.5 g/dL (2.2-4.0); Total Protein, Blood 7.7 g/dL (6.4-8.2)
[2021-11-10 12:58] LABS: PCO2 Arterial 44.2 mmHg (35-45); PO2 Arterial 76.4 mmHg (80-100); pH Blood Arterial 7.18 (7.35-7.45)
[2021-11-10 13:08] LABS: Source, Urine Foley catheter
[2021-11-10 13:19] LABS: Appearance, Urine Clear (Clear); Bilirubin, Urine Neg (Neg); Blood, Urine 1+ (Neg); Color, Urine Yellow (P-Yellow); Glucose Qualitative, Urine Neg (Neg); Ketones, Urine Neg (Neg); Leukocyte Esterase, Urine Neg (Neg); Nitrite, Urine Neg (Neg); Protein, Urine Neg (Neg); Urobilinogen, Urine NORM (Normal)
[2021-11-10 13:43] LABS: White Blood Cells, Urine 0-2 /hpf (0-5)
[2021-11-10 13:44] LABS: Squamous Epithelial Cells Rare /hpf (Few)
[2021-11-10] MEDS ORDERED: ASPI325EC PO (13:44)
[2021-11-10] MEDS ORDERED: ATOR40TA PO (13:44)
[2021-11-10] MEDS ORDERED: AMLO5 PO (13:44)
[2021-11-10 13:45] LABS: Bacteria Mod /hpf; Mucus Light (0-Heavy)
[2021-11-10] MEDS ORDERED: Lexapro 10 mg T10 MG PO (13:45)
[2021-11-10] MEDS ORDERED: PANT40 PO (13:46)
[2021-11-10] MEDS ORDERED: Synthroid200 MCG PO (13:46)
[2021-11-10] MEDS ORDERED: SENNA LAXATIVE8.6 MG PO (13:46)
--- NOTE | 2021-11-10 16:00 | NUR ---
PT ARRIVAL.... PT ARRIVED ON THE UNIT INTUBATED BUT NOT SEDATED, THE PT'S VENT SETTINGS UPON ARRIVAL WERE AC/VC:12/450/10/100% WITH O2 SATS >90% L/S VERY COARSE RHONCHI T/O WITH SCATTERED WHEEZES. A LARGE AMOUNT OF THIN BRIGHT RED FLUID IS NOTED WHEN THE ET TUBE IS SUCTIONED. THE PT WAS AWAKE AND ABLE TO FOLLOW SIMPLE COMMANDS. THE PT WAS IN SINUS TACH IN THE LOW 100'S WITH A SOFT BUT STABLE BP WITH MAPS >60. NO EDEMA WAS NOTED ON ASSESSMENT. THE PT HAS AN OG TUBE THAT WAS SET TO LIS WITH THICK YELLOW GASTRIC CONTENTS NOTED. SOON THE PT WAS PULLED OVER TO THE ICU BED THE PT STARTED TO VOMIT, ORAL CARE AND SUCTION WAS DONE SOON STAFF NOTICED THE PT WAS VOMITING. A TEMP MARTI IS PATENT AND DRAINING TO GRAVITY THE PT'S TEMP IS 101.4. DURING TURNING THE PT HAD A LARGE LIQUID STOOL, A RECTAL TUBE WAS PLACED AND A SAMPLE WAS SENT PER ORDERS. WILL CONTINUE TO MONITOR.
[2021-11-10 17:44] LABS: PCO2 Arterial 36.7 mmHg (35-45); PO2 Arterial 56.5 mmHg (80-100); pH Blood Arterial 7.35 (7.35-7.45)
--- NOTE | 2021-11-10 18:47 | NUR ---
SHIFT SUMMARY.... THE PT WAS SEDATED PER ORDERS FROM DR. AGUILAR, THE PT WAS PLACED ON PROPOFOL AT 30MCG/KG, ONCE THIS WAS STARTED THE PT'S MAPS STARTED TO DROP <60 AND LEVOPHED WAS STARTED IN A PERIPHERAL IV WHILE A PICC LINE WAS BEING PLACED. ONCE THE PICC WAS PLACED THE LEVOPHED WAS SWITCHED OVER TO THE PICC LINE. THE PT'S PROPOFOL WAS INCREASED TO 40MCG/KG TO KEEP THE PT FROM BITING THE ET TUBE. THE PT'S MARTI IS PATENT AND DRAINED 170MLS OF CLEAR YELLOW URINE TO GRAVITY, PROVIDER IS AWARE. CALL LIGHT IN REACH WILL CONTINUE TO MONITOR UNTIL REPORT IS GIVEN TO ONCOMING RN.
[2021-11-10 19:10] LABS: Influenza A, PCR NEGATIVE (NEGATIVE); Influenza B, PCR NEGATIVE (NEGATIVE); Resp Syncytial Virus, PCR NEGATIVE (NEGATIVE); SARS-Cov-2 (COVID-19) PCR, MMC NEGATIVE (NEGATIVE)
--- NOTE | 2021-11-10 19:30 | NUR ---
ASSUMPTION OF CARE PT IS SEDATED ON PROPOFOL W/ETT INTACT AND PATENT TO THE VENT. BILATERAL BREATH SOUNDS PRESENT, OXYGEN SAT >95%. PT IS ON LEVOPHED FOR BP SUPPORT, TITRATING TO KEEP MAP >65. PT IS SR ON THE TIPPLE BOSS. OG TUBE TO ILWS. PT IS TOLERATING VENTILATION WELL AT THIS TIME. SOFT BILATERAL WRIST RESTRAINTS INTACT. PT HAS A RECTAL TUBE DRAINING LIQUID BROWN STOOL. PT IS FEBRILE.
[2021-11-10] MEDS ORDERED: VITAMIN D31000 UNI1 PO (20:49)
[2021-11-10] MEDS ORDERED: MULVITA PO (20:50)
[2021-11-11 02:46] LABS: BASOPHILS ABSOLUTE AUTO 0.03 K/mm3 (0.00-0.23); BASOPHILS PERCENT AUTO 0 % (0-2); EOSINOPHILS ABSOLUTE AUTO 0.01 K/mm3 (0.00-0.68); EOSINOPHILS PERCENT AUTO 0 % (0-6); Hemoglobin 9.8 g/dL (11.5-16.0); IMMATURE GRAN ABSOLUTE AUTO 0.06 K/mm3 (0.00-0.10); IMMATURE GRAN PERCENT AUTO 0 % (0-1); LYMPHOCYTES PERCENT AUTO 4 % (21-46); MONOCYTES ABSOLUTE AUTO 0.81 K/mm3 (0.16-1.47); MONOCYTES PERCENT AUTO 4 % (4-13); Mean Corpuscular HGB 29.6 pg (26.0-34.0); Mean Corpuscular HGB Conc 32.7 g/dL (31.5-36.5); Mean Corpuscular Volume 91 fL (80-100); Mean Platelet Volume 9.4 fL (9.1-12.4); NEUTROPHILS ABSOLUTE AUTO 17.22 K/mm3 (1.96-9.15); NEUTROPHILS PERCENT AUTO 91 % (41-73); Platelet Count 284 K/mm3 (150-400); RDW Standard Deviation 46.6 fL (35.1-46.3); Red Blood Cell Count 3.31 M/mm3 (3.80-5.20); White Blood Cell Count 18.83 K/mm3 (4.00-11.30)
[2021-11-11 03:03] LABS: Magnesium, Blood 1.4 mg/dL (1.6-2.4)
[2021-11-11 03:24] LABS: Albumin, Blood 2.2 g/dL (3.4-5.0); Albumin/Globulin Ratio 0.8 (0.8-1.8); Bilirubin, Total 0.4 mg/dL (0.1-1.0); Calcium, Blood 7.8 mg/dL (8.5-10.1); Creatinine, Blood 0.96 mg/dL (0.40-1.00); Globulin, Blood 2.9 g/dL (2.2-4.0); Phosphorus, Blood 2.9 mg/dL (2.5-4.9); Potassium, Blood 3.8 mmol/L (3.5-5.5)
[2021-11-11 03:25] LABS: Total Protein, Blood 5.1 g/dL (6.4-8.2)
--- NOTE | 2021-11-11 09:14 | NUR ---
ASSUMED CARE OF PT, REPORT RCV'D FROM MOUNA PEREZ. PT INTUBATED AND SEDATED. VENT SETTINGS AC 12/450/10/30%, LUNG SOUNDS COARSE T/O. BLOODY SPUTUM FROM ETT, GREEN BILE FROM OGT. PROPOFOL @ 30 MCG/KG/MIN. PUPILS 1 MMS, BRISK RESPONSE BILATERALLY, PT WITHDRAWS FROM PAIN, FAILS TO FOLLOW COMMANDS AT THIS TIME. TMAX 99.9, BILATERALLY UPPER/LOWER EXTREMETIES COOL TO THE TOUCH WITH SLIGHT MOTTLING. LEVOPHED @ 10 MCG/MIN TO MAINTAIN MAP>65. RECTAL TUBE AND TEMP MARTI PATENT AND DRAINIG TO GRAVITY. SEE FULL SHIFT ASSESSMENT.
--- NOTE | 2021-11-11 14:18 | NUR ---
TUBE FEED STARTED PER ORDER. PT'S DAUGHTER CLAUDIO AT BEDSIDE. UPDATED WITH PT'S STATUS AND PLAN OF CARE. PRESSORS REMAIN ON STANDBY. PEEP DECREASED TO 5.
[2021-11-11 14:49] LABS: C DIFFICILE DNA NEGATIVE (Negative)
[2021-11-11 17:55] LABS: Adenovirus F 40/41 Not Detected (NOT DETECT); Astrovirus Not Detected (NOT DETECT); Campylobacter Sp Not Detected (NOT DETECT); Cryptosporidium Not Detected (NOT DETECT); Cyclospora Cayetanensis Not Detected (NOT DETECT); E. Coli O157 Not Detected (NOT DETECT); Entamoeba Histolytica Not Detected (NOT DETECT); Enteroaggregative E. coli-EAEC Not Detected (NOT DETECT); Enteropathogenic E. coli-EPEC Not Detected (NOT DETECT); Enterotoxigenic E. coli-ETEC Not Detected (NOT DETECT); Giardia Lamblia Not Detected (NOT DETECT); Norovirus GI/GII Not Detected (NOT DETECT); Plesiomonas Shigelloides Not Detected (NOT DETECT); Rotavirus A Not Detected (NOT DETECT); Salmonella Sp Not Detected (NOT DETECT); Sapovirus Not Detected (NOT DETECT); Shiga Toxin-prod E. coli-STEC Not Detected (NOT DETECT); Shigella/Enteroin E. coli-EIEC Not Detected (NOT DETECT); Vibrio Cholerae Not Detected (NOT DETECT); Vibrio Sp Not Detected (NOT DETECT); Yersinia Enterocolitica Not Detected (NOT DETECT)
--- NOTE | 2021-11-11 18:02 | NUR ---
SHIFT SUMMARY PT REMAINS INTUBATED AND LIGHTLY SEDATED. VENT SETTING AC 12/450/5/25%. PROPOFOL @ 30 MCG/KG/MIN. PT AWAKES TO VERBAL STIMULATION, MOVES ALL EXTREMETIES WEAKLY. 500 ML URINARY OUTPUT. RECTAL TUBE REMAINS PATENT AND DRAINING MALODOROUS LIQUID STOOL. VSS T/O SHIFT. VITAL HIGH PROTEIN AT GOAL RATE 35 ML/HR. WILL REPORT TO ONCOMING NURSE.
--- NOTE | 2021-11-12 02:59 | NUR ---
REPORT GIVEN TO Elaina FREIRE WHO HAS ASSUMED CARE OF THIS PATIENT AT THIS TIME.
[2021-11-12 03:41] LABS: BASOPHILS ABSOLUTE AUTO 0.02 K/mm3 (0.00-0.23); BASOPHILS PERCENT AUTO 0 % (0-2); EOSINOPHILS ABSOLUTE AUTO 0.11 K/mm3 (0.00-0.68); EOSINOPHILS PERCENT AUTO 1 % (0-6); Hematocrit 27.3 % (33.0-51.0); Hemoglobin 9.1 g/dL (11.5-16.0); IMMATURE GRAN ABSOLUTE AUTO 0.06 K/mm3 (0.00-0.10); IMMATURE GRAN PERCENT AUTO 1 % (0-1); LYMPHOCYTES ABSOLUTE AUTO 0.85 K/mm3 (0.84-5.20); LYMPHOCYTES PERCENT AUTO 8 % (21-46); MONOCYTES ABSOLUTE AUTO 0.51 K/mm3 (0.16-1.47); MONOCYTES PERCENT AUTO 5 % (4-13); Mean Corpuscular HGB 29.6 pg (26.0-34.0); Mean Corpuscular HGB Conc 33.3 g/dL (31.5-36.5); Mean Corpuscular Volume 89 fL (80-100); Mean Platelet Volume 9.5 fL (9.1-12.4); NEUTROPHILS PERCENT AUTO 86 % (41-73); Platelet Count 210 K/mm3 (150-400); RDW Coefficient Variation 13.8 % (11.7-14.2); RDW Standard Deviation 45.1 fL (35.1-46.3); Red Blood Cell Count 3.07 M/mm3 (3.80-5.20); White Blood Cell Count 11.05 K/mm3 (4.00-11.30)
[2021-11-12 04:00] LABS: Bun/Creatinine Ratio 22.8 (12.0-20.0); Calcium, Blood 9.1 mg/dL (8.5-10.1); Creatinine, Blood 0.79 mg/dL (0.40-1.00); Magnesium, Blood 1.7 mg/dL (1.6-2.4); Phosphorus, Blood 2.2 mg/dL (2.5-4.9); Potassium, Blood 3.6 mmol/L (3.5-5.5)
--- NOTE | 2021-11-12 05:27 | NUR ---
SHIFT SUMMARY ASSUMED CARE FROM MOUNA PEREZ @ 1489. SINCE THAT TIME THERE HAVE BEEN NO CHANGES IN PATIENT STATUS AND NO ACUTE EVENTS. WHEN PROPOFOL IS OFF, PATIENT AWAKENS QUICKLY, TRACKS TO SOUND, NODS HEAD "NO" WHEN ASKED IF SHE IS IN PAIN, AND FOLLOWS COMMANDS. PATIENT WAS AFEBRILE @ 99F CORE. NO RECTAL TUBE OUTPUT AND 230ML OUT OF MARTI. LABS SHOWED PHOS 2.2-CALL MADE TO DR. HOOK AND ORDERS GIVEN FOR KPHOS 30MMOL.
--- NOTE | 2021-11-12 10:31 | NUR ---
ASSUMED CARE OF PT, REPORT RCV'D FROM RACHAEL Magallanes RN. PT INTUBATED AND LIGHTLY SEDATED. VENT SETTINGS 12/450/5/25%. PROPOFOL @20 MCG/KG/MIN. PT AROUSABLE TO VERBAL/PAINFUL/NOXIOUS STIMULI, DOESN'T OPEN EYES BUT MOVES ALL EXTREMITIES AND FOLLOWS COMMANDS. LUNG SOUNDS COARSE T/O MODERATE AMOUNT OF THICK BROWN/BLOOD TINGED SPUTUM. TUBE FEED AT GOAL RATE. RECTAL TUBE PATENT AND MALODOROUS, LIQUID BROWN STOOL SEEN IN TUBE. SCANT AMOUNT OF URINE IN MARTI CATH TUBING. SEE FULL SHIFT ASSESSMENT.
--- NOTE | 2021-11-12 18:24 | NUR ---
SHIFT SUMMARY NO ACUTE CHANGES T/O SHIFT. VENT SETTINGS REMAINS UNCHANGED. PROPOFOL @ 20 MCG/KG/MIN. 100 ML URINARY OUTPUT. RECTAL TUBE LEAKING WATERY MALODOROUS STOOL. PT REMAINS ALERT TO VERBAL STIMULATION. WILL REPORT TO ONCOMING NURSE.
--- NOTE | 2021-11-12 19:22 | NUR ---
ASSUMED CARE PATIENT LYING IN BED INTUBATED AND SEDATED ON PROPOFOL 20MCG/KG/MIN TO OMEGA PICC; LR TKO INF WELL. 18G TO RT AC SALINE LOCKED. VENT SETTINGS AC/VC 12/450/5/35% WITH SPO2 88-92%. LUNG SOUNDS CLEAR T/O, BUT SMALL AMOUNT OF THICK ZAYAS SECRETIONS WITH BROWNISH RED STREAKING PRESENT IN ETT. PATIENT OPENS EYES AND TRACKS MOVEMENT, BUT DOES NOT FOLLOW COMMANDS OR ANSWER "YES/NO" QUESTIONS WITH NODDING OF HEAD. TF INF @ GR 35ML/HR WITH 30ML Q4H WATER FLUSHES. TEMP MARTI PATENT AND DRAINING YELLOW CLEAR URINE WITH TEMP 100.4F. RECTAL TUBE PATENT AND DRAINING ZAYAS/BROWN LIQUID STOOL TO GRAVITY. REPORT COMPLETED WITH MOUNA MALIK.
[2021-11-12 23:32] LABS: Source, Urine Foley catheter
--- NOTE | 2021-11-12 23:33 | NUR ---
MARTI CATHETER CHANGED MRATI CATHETER FOUND TO BE LEAKING DESPITE ADDING MORE FLUID TO BALLOON TO MAKE TOTAL FLUID 10ML. NEW 18G TEMP MARTI PLACED AND OLD MARTI REMOVED. OVER 1000ML LIGHT YELLOW CLEAR URINE IMMEDIATELY OUT. NEW UA SAMPLE SENT.
[2021-11-12 23:34] LABS: Bilirubin, Urine Neg (Neg); Blood, Urine 4+ (Neg); Glucose Qualitative, Urine Neg (Neg); Ketones, Urine Neg (Neg); Leukocyte Esterase, Urine Neg (Neg); Nitrite, Urine Neg (Neg); Protein, Urine Neg (Neg); Urobilinogen, Urine NORM (Normal)
[2021-11-12 23:51] LABS: Appearance, Urine Clear (Clear); Color, Urine Pale Yellow (P-Yellow)
[2021-11-12 23:52] LABS: Bacteria Not Seen /hpf; Squamous Epithelial Cells Few /hpf (Few); White Blood Cells, Urine Not Seen /hpf (0-5)
[2021-11-13 03:41] LABS: BASOPHILS ABSOLUTE AUTO 0.01 K/mm3 (0.00-0.23); BASOPHILS PERCENT AUTO 0 % (0-2); EOSINOPHILS ABSOLUTE AUTO 0.14 K/mm3 (0.00-0.68); EOSINOPHILS PERCENT AUTO 2 % (0-6); Hematocrit 25.1 % (33.0-51.0); Hemoglobin 8.5 g/dL (11.5-16.0); IMMATURE GRAN ABSOLUTE AUTO 0.04 K/mm3 (0.00-0.10); IMMATURE GRAN PERCENT AUTO 0 % (0-1); LYMPHOCYTES ABSOLUTE AUTO 0.98 K/mm3 (0.84-5.20); LYMPHOCYTES PERCENT AUTO 10 % (21-46); MONOCYTES PERCENT AUTO 3 % (4-13); Mean Corpuscular HGB 29.4 pg (26.0-34.0); Mean Corpuscular HGB Conc 33.9 g/dL (31.5-36.5); Mean Corpuscular Volume 87 fL (80-100); Mean Platelet Volume 9.6 fL (9.1-12.4); NEUTROPHILS ABSOLUTE AUTO 8.03 K/mm3 (1.96-9.15); NEUTROPHILS PERCENT AUTO 85 % (41-73); Platelet Count 232 K/mm3 (150-400); RDW Coefficient Variation 13.5 % (11.7-14.2); RDW Standard Deviation 42.7 fL (35.1-46.3); Red Blood Cell Count 2.89 M/mm3 (3.80-5.20)
[2021-11-13 04:00] LABS: Bun/Creatinine Ratio 19.6 (12.0-20.0); Calcium, Blood 8.1 mg/dL (8.5-10.1); Creatinine, Blood 0.87 mg/dL (0.40-1.00); Phosphorus, Blood 4.1 mg/dL (2.5-4.9); Potassium, Blood 3.2 mmol/L (3.5-5.5)
--- NOTE | 2021-11-13 07:15 | NUR ---
SHIFT SUMMARY PATIENT HAD SEDATION VACATION THIS MORNING FOR APPROXIMATELY 30 MINUTES. PATIENT WAS ABLE TO MOVE ALL EXTREMITIES AT THAT TIME, FOLLOW COMMANDS, AND KEEP SATS IN HIGH 90'S-100% ON AC/VC 12/450/5/35%. WHEN PROPOFOL AT HIGHER RATE OF 2OMCG/KG/MIN OR HIGHER SHE WOULD ATTEMPT TO OPEN EYES, BUT NOT FOLLOWING COMMANDS OR MOVING EXTREMITIES. LASIX 40MG IV X 1 GIVEN AT BEGINNING OF SHIFT FOR DECREASED URINE OUTPUT. AFTER LASIX ADMINISTRATION MARTI WAS FOUND TO BE LEAKING LARGE AMOUNTS OF URINE-SOAKING DRIFLO AND RUFF UNDERNEATH. MARTI WAS REMOVED AND A NEW TEMP MARTI PLACED WITH OVER 2L URINE OUT OF MARTI AFTER THAT TIME. PATIENT HAD MINIMAL TO NO RESIDUALS FROM OGT AND RECTAL TUBE STILL PATENT AND DRAINING TO GRAVITY. LABS SHOWED LOW POTASSIUM THIS MORNING OF 3.2-KCL REPLACEMENT ORDERED AND STARTED. REPORT COMPLETED WITH MOUNA JARVIS.
--- NOTE | 2021-11-13 09:45 | NUR ---
CARE OF PT ASSUMED AT 0700. PT SEDATED ON PROPOFOL AT 20MCG FOR MECH VENT. MINIMAL SECRETIONS, LUNGS CLEAR, SATS 99-100% ON 35% FIO2. TUBE FEEDS AT GOAL. ADEQUATE U/O, EDEMA TO LOWER EXT. POSSIBLE EXTUBATION TODAY. DR YIN IN TO SEE PT.
--- NOTE | 2021-11-13 13:28 | NUR ---
DR FLEMING AT BEDSIDE AT 1150. PT PLACED ON PS 15/5, FIO2 30%. PROPOFOL DECREASED TO 10MCG. PT WOKE UP AT 1300 CRYING; LARGE TEARS WITH LARGE FROWN. DAUGHTER AT BEDSIDE. DR FLEMING NOTIFIED. FENTANYL 25MCG GIVEN FOR ADJUNCT TO SEDATION AND PRECEDEX GTT ORDERED. OKAY TO GIVE THE LOVENOX PER DR FLEMING, LASIX ORDERED AND GIVEN. PT DOING WELL OVER ALL ON SPONT TRIAL.
--- NOTE | 2021-11-13 16:40 | NUR ---
PROPOFOL OFF. PT AWAKENS WITH CARE, NODS HEAD TO BEING AFRAID, DENIES PAIN. PT LOOKS LESS FEARFUL ON PRECEDEX, FACE CALM, NOT CRYING. PRECEDEX AT 0.3MCG, TURNED DOWN FROM 0.4MCG FOR SOME BRADYCARDIA 50'S. PS CHANGED TO 12 BY RT.
--- NOTE | 2021-11-13 18:47 | NUR ---
PT PLACED BACK ON AC/VC SETTINGS. FENTANYL 25MCG GIVEN FOR DISCOMFORT (PT NODDED HEAD YES TO PAIN; THROAT/BACK). PT REMAINS CALM WHILE AWAKE.
--- NOTE | 2021-11-13 19:33 | NUR ---
ASSUMED CARE PATIENT LYING IN BED WITH EYES CLOSED-AWAKENS EASILY TO VERBAL STIMULI. PRECEDEX INF TO OMEGA PICC @ 0.2MG/KG/HR. PATIENT DENIES PAIN AND FOLLOWS COMMANDS. INTUBATED ON AC/VC 12/450/5/35% WITH SPO2 MID TO HIGH 80'S. MONITOR SHOWS SINUS CORONA WITH RATE 50'S. BP STABLE WITH MAPS GREATER THAN 65. OGT IN PLACE WITH VHP INF @ GR 35ML/HR. TEMP MARTI PATENT DRAINING LIGHT YELLOW CLEAR URINE TO GRAVITY-CORE TEMP 99.5F. RECTAL TUBE DRAINING BROWN LIQUID STOOL TO GRAVITY. REPORT COMPLETED WITH MOUNA JARVIS.
[2021-11-14 04:34] LABS: BASOPHILS ABSOLUTE AUTO 0.02 K/mm3 (0.00-0.23); BASOPHILS PERCENT AUTO 0 % (0-2); EOSINOPHILS ABSOLUTE AUTO 0.34 K/mm3 (0.00-0.68); EOSINOPHILS PERCENT AUTO 6 % (0-6); Hematocrit 25.3 % (33.0-51.0); Hemoglobin 8.2 g/dL (11.5-16.0); IMMATURE GRAN ABSOLUTE AUTO 0.03 K/mm3 (0.00-0.10); IMMATURE GRAN PERCENT AUTO 1 % (0-1); LYMPHOCYTES ABSOLUTE AUTO 1.14 K/mm3 (0.84-5.20); LYMPHOCYTES PERCENT AUTO 18 % (21-46); MONOCYTES ABSOLUTE AUTO 0.35 K/mm3 (0.16-1.47); MONOCYTES PERCENT AUTO 6 % (4-13); Mean Corpuscular HGB 28.9 pg (26.0-34.0); Mean Corpuscular HGB Conc 32.4 g/dL (31.5-36.5); Mean Corpuscular Volume 89 fL (80-100); Mean Platelet Volume 9.6 fL (9.1-12.4); NEUTROPHILS ABSOLUTE AUTO 4.31 K/mm3 (1.96-9.15); NEUTROPHILS PERCENT AUTO 70 % (41-73); Platelet Count 242 K/mm3 (150-400); RDW Coefficient Variation 13.7 % (11.7-14.2); Red Blood Cell Count 2.84 M/mm3 (3.80-5.20); White Blood Cell Count 6.19 K/mm3 (4.00-11.30)
[2021-11-14 04:51] LABS: Bun/Creatinine Ratio 27.2 (12.0-20.0); Calcium, Blood 8.3 mg/dL (8.5-10.1); Creatinine, Blood 0.88 mg/dL (0.40-1.00); Magnesium, Blood 1.6 mg/dL (1.6-2.4); Potassium, Blood 3.4 mmol/L (3.5-5.5)
--- NOTE | 2021-11-14 06:35 | NUR ---
SHIFT SUMMARY NO ACUTE EVENTS LAST NIGHT. PRECEDEX REMAINED AT 0.2MCG/KG/HR AND ONE DOSE OF FENTANYL 25MCG IV GIVEN FOR RT ARM PAIN. PATIENT WAS EASILY AROUSABLE FROM SLEEP AND FOLLOWED COMMANDS T/O SHIFT. NODS HEAD "YES/NO" TO SIMPLE QUESTIONS. TEMP MARTI DRAINING TO GRACITY-450ML OUT. NO STOOL OUTPUT FROM RECTAL TUBE, BUT BROWN LIQUID STOOL IN TUBE. POTASSIUM LOW THIS AM AT 3.4-KCL 40MEQ IV X [address] HOOK. CALCIUM LOW AT 8.1 AND NO NEW ORDERS FROM DR. HOOK.
--- NOTE | 2021-11-14 08:31 | NUR ---
CARE OF PT ASSUMED AT 0700. PT SLEEPING ON PRECEDEX AT 0.2MCG FOR MECH VET ERIC. PT AWAKENS TO CARE, CALM AND RELAXED. PT ABLE TO NOD HEAD APPROPRIATELY TO QUESTIONS. DENIES C/O PAIN. PT ON AC/VC MODE. POSSIBLE EXTUBATION TODAY. SATS 98% ON 30% FIO2. PEEP 5. LUNGS CLEAR, MINIMAL SECRETIONS.
--- NOTE | 2021-11-14 10:27 | NUR ---
DR FLEMING IN TO SEE PT. PT PLACED ON SIMV 14/5 35%, BACKUP RATE OF 8. PT WIDE AWAKE WATCHING TV, NODS YES TO FEELING LIKE SHE IS BREATHING WELL. PT CALM AND RELAXED. PRECEDEX REMAINS AT 0.2MCG. PT DENIES C/O PAIN.
--- NOTE | 2021-11-14 15:51 | NUR ---
PT SLEEPING, OPENS EYES TO VOICE, RESP RATE DOWN TO 8, PT NODS HEAD YES SHE IS TIRED AND BREATHING IS A LITTLE MORE DIFFICULT. DR FLEMING NOTIFIED AND INCREASED RATE TO 12. PRECEDEX REMAINS 0.2MCG, HR AT 49-50'S, BP STABLE.
--- NOTE | 2021-11-14 18:12 | NUR ---
PT TO STAY ON CURRENT VENT SETTINGS OVER NIGHT. PT BECAME TEARFUL WHEN TURNED, SMALL AMT OF STOOL CLEANED FROM BOTTOM, PAD CHANGED. PT C/O PAIN VIA NODS TO THROAT, BOTTOM, AND BACK. FENTANYL 25MCG GIVEN FOR PAIN. NO OTHER CHANGES.
--- NOTE | 2021-11-14 18:18 | NUR ---
PT CALM AND RELAXED WATCHING TV, NODS YES TO PAIN IMPROVED.
[2021-11-15 03:44] LABS: BASOPHILS ABSOLUTE AUTO 0.03 K/mm3 (0.00-0.23); BASOPHILS PERCENT AUTO 1 % (0-2); EOSINOPHILS PERCENT AUTO 7 % (0-6); Hematocrit 25.6 % (33.0-51.0); Hemoglobin 8.3 g/dL (11.5-16.0); IMMATURE GRAN ABSOLUTE AUTO 0.03 K/mm3 (0.00-0.10); IMMATURE GRAN PERCENT AUTO 1 % (0-1); LYMPHOCYTES PERCENT AUTO 18 % (21-46); MONOCYTES ABSOLUTE AUTO 0.52 K/mm3 (0.16-1.47); MONOCYTES PERCENT AUTO 8 % (4-13); Mean Corpuscular HGB 29.1 pg (26.0-34.0); Mean Corpuscular HGB Conc 32.4 g/dL (31.5-36.5); Mean Corpuscular Volume 90 fL (80-100); Mean Platelet Volume 9.4 fL (9.1-12.4); NEUTROPHILS ABSOLUTE AUTO 4.11 K/mm3 (1.96-9.15); NEUTROPHILS PERCENT AUTO 66 % (41-73); Platelet Count 270 K/mm3 (150-400); RDW Coefficient Variation 13.5 % (11.7-14.2); Red Blood Cell Count 2.85 M/mm3 (3.80-5.20); White Blood Cell Count 6.19 K/mm3 (4.00-11.30)
[2021-11-15 03:53] LABS: Bun/Creatinine Ratio 34.4 (12.0-20.0); Calcium, Blood 8.5 mg/dL (8.5-10.1); Creatinine, Blood 0.87 mg/dL (0.40-1.00); Magnesium, Blood 1.8 mg/dL (1.6-2.4); Potassium, Blood 3.5 mmol/L (3.5-5.5)
--- NOTE | 2021-11-15 05:45 | NUR ---
SHIFT SUMMARY PATIENT SLEPT T/O SHIFT. EASILY AWOKE TO VERBAL STIMULI. ONE EPISODE OF TEARFULNESS W/O C/O PAIN. WHEN ASKED IF SHE WAS SAD SHE NODDED YES. PATIENT WAS ABLE TO NOD HEAD YES/NO TO QUESTIONS AND TRACK TO SOUND. MOBILITY OF OMEGA IS IMPROVING AND ABLE TO REACH NOSE-MINIMAL USE OF RA NOTED ON ASSESSMENT THIS MORNING. PRECEDEX DECREASED FROM 0.2MCG/KG/HR TO 0.1MCG/KG/HR D/T BRADYCARDIA IN LOW 40'S. BP REMAINED STABLE. TEMP MARTI AND RECTAL TUBE DRAINING TO GRAVITY. NO OTHER CHANGES DURING SHIFT.
--- NOTE | 2021-11-15 09:53 | NUR ---
report from pm rn, patient was in no distress, answering appriately, following directions and consolable. [address] tong rounded, no new orders. [address] lees at bedside, rt lupillo, and rn janet. paitent tolerated with ease, nc 4l 97%. 0943 dr lees rounded on patient, patient in no distress and happy the et tube is out. reported to patients daughter raul and updated on condition
--- NOTE | 2021-11-15 15:04 | NUR ---
PATIENT DAUGHTER CLAUDIO CAME TO VISIT, LEFT FOR THE NIGHT, PATIENT PLEASANT AND COOPERATIVE
--- NOTE | 2021-11-15 17:27 | NUR ---
MAKES NEEDS KNOWN, PLEASANT TO CARE, FORGETFUL AND EMOTIONAL AT TIMES, CONSOLABLE, TEMP 99-100 FOLY. ALERT AND ORIENTED TO SELF, FAMILY. EXTUBATED AT 0915, 4 L O2 VIA NC, PATIENT TOLERATED WELL, ST EVAL DONE PUREE DIET, SPOON FEED ONLY, MEDS CRUSHED IN APPLESAUCE. TELE NSR, PRECEDEX OFF SINCE 1000, RECTAL TUBE IN PLACE, LIQUID STOOL, SMALL LEAKAGE, TEMP MARTI TO GRAVITY. DAUGHTER CLAUDIO VISITED TODAY, CALL LIGHT WITH IN REACH, WILL RELAY TO PM RN, TEDTM
--- NOTE | 2021-11-15 20:22 | NUR ---
ASSUMED CARE AT 1900 PT LAYING IN BED WATCHING TV AT SHIFT CHANGE. PT IS ALERT AND TALKATIVE; SHE IS ABLE TO MAKE CONVERSATIONS AND DISCUSS PAST EVENTS; SHE IS ORIENTED TO SELF, SURROUNDINGS, EVENT THAT BROUGHT HER HERE, AND FOLLOWS DIRECTIONS; SHE IS NOT ORIENTED TO DATE, TIME, OR TOWN; SHE IS ABLE TO ASSIST WITH REPOSITIONING BUT IS WEAK TO BUE AND BLE; FORGETS TO USE CALL LIGHT. TEMP 100.2; PT C/O HEADACHE ALSO; CALLED DR ELLIOTT WHO PROVIDED ORDER FOR TYLENOL. SPO2 >95% ON 2L NC. HR 70'S. BP STABLE. MARTI AND RECTAL TUBE IN PLACE AND DRAINING TO GRAVITY. PICC TO LUE PATENT, DRESSING C/D/I. SEE SHIFT ASSESSMENT FOR FULL ASSESSMENT.
[2021-11-16 04:19] LABS: BASOPHILS ABSOLUTE AUTO 0.03 K/mm3 (0.00-0.23); BASOPHILS PERCENT AUTO 1 % (0-2); EOSINOPHILS ABSOLUTE AUTO 0.28 K/mm3 (0.00-0.68); EOSINOPHILS PERCENT AUTO 5 % (0-6); Hematocrit 27.4 % (33.0-51.0); Hemoglobin 8.8 g/dL (11.5-16.0); IMMATURE GRAN ABSOLUTE AUTO 0.05 K/mm3 (0.00-0.10); IMMATURE GRAN PERCENT AUTO 1 % (0-1); LYMPHOCYTES ABSOLUTE AUTO 1.43 K/mm3 (0.84-5.20); LYMPHOCYTES PERCENT AUTO 24 % (21-46); MONOCYTES ABSOLUTE AUTO 0.54 K/mm3 (0.16-1.47); MONOCYTES PERCENT AUTO 9 % (4-13); Mean Corpuscular HGB 28.9 pg (26.0-34.0); Mean Corpuscular HGB Conc 32.1 g/dL (31.5-36.5); Mean Corpuscular Volume 90 fL (80-100); Mean Platelet Volume 9.3 fL (9.1-12.4); NEUTROPHILS ABSOLUTE AUTO 3.61 K/mm3 (1.96-9.15); NEUTROPHILS PERCENT AUTO 61 % (41-73); Platelet Count 311 K/mm3 (150-400); RDW Coefficient Variation 13.8 % (11.7-14.2); RDW Standard Deviation 45.3 fL (35.1-46.3); Red Blood Cell Count 3.05 M/mm3 (3.80-5.20); White Blood Cell Count 5.94 K/mm3 (4.00-11.30)
[2021-11-16 04:34] LABS: Bun/Creatinine Ratio 24.4 (12.0-20.0); Calcium, Blood 8.5 mg/dL (8.5-10.1); Creatinine, Blood 0.9 mg/dL (0.40-1.00); Potassium, Blood 3.7 mmol/L (3.5-5.5)
--- NOTE | 2021-11-16 05:59 | NUR ---
END OF SHIFT SUMMARY NO ACUTE EVENTS OVERNIGHT, PT DID NOT SLEEP AT ALL T/O SHIFT. NO CHANGE IN MENTATION; CONT TO BE PLEASENT AND ORIENTED X2 BUT NOT TO DATE, TIME, OR TOWN. TMAX 100.2, TEMP NOW 99.3. SPO2 >95% ON 3L; PRODUCTIVE COUGH NOTED, PT IS ABLE TO CLEAR SECREATIONS. HR 60-70'S. BP STABLE. RECTAL TUBE IN PLACE WITH 100ML OUTPUT. MARTI IN PLACE WITH 800ML OUTPUT. PICC LINE TO OMEGA PATENT WITH DRESSING C/D/I. WILL REPORT TO AM RN WHEN AVAILABLE.
--- NOTE | 2021-11-16 11:00 | NUR ---
RECTAL TUBE REMOVED, PT CLEANED AND TOLERATED TRANSITIONING WELL. PT IS WEAK, BOTTOM IS WITHOUT REDNESS OR EXCORIATION. MARTI REMAINS INTACT, TEMP ELEVATED AT 99.8.
--- NOTE | 2021-11-16 11:27 | NUR ---
KEILA WAS EVALUATED AGAIN BY ST FRANDY. SHE IS ABLE TO HAVE MECHANICAL SOFT DIET AND STRAWS, HAVE HER MEDICATIONS WHOLE WITH APPLESAUCE AND BE SUPERVISED WHILE EATING. SHE WAS ABLE TO GIVE HERSELF SOME ICE CREAM, MUCH TO HER SATISFACTION. SHE IS CURRENTLY UNDERGOING VENOUS DUPLEX OF THE LEFT LOWER EXTREMITY RE: THE SWELLING AND BRUISING OBSERVED.
--- NOTE | 2021-11-16 12:44 | NUR ---
PT REFUSES LUNCH TRAY. STATES SHE'S NOT HUNGRY.
--- NOTE | 2021-11-16 13:55 | NUR ---
KEILA HAS BEEN MAINTAINING HER OXYGEN SATS AT 99%, DECREASED HER TO 1L/NC
--- NOTE | 2021-11-16 18:40 | NUR ---
Transfer NOte: Pt arrived to room PCU 11. Settled into room and Pt given call light. VSS. Pt denies questions. Will report to night RN.
--- NOTE | 2021-11-16 18:45 | NUR ---
KEILA HAD A GOOD DAY. SHE WAS ABLE TO ADVANCE HER DIET, ENJOYING MORE OF HER DINNER. SHE CONTINUED TO DO WELL ENOUGH TO TRY TO BE ON ROOM AIR THIS AFTER- NOON. SHE WAS IN THE LOW 90'S UNTIL SHE BECAME FIXATED ON A PROGRAM ON TV AND HELD HER BREATH. WHEN SHE WAS REMINDED TO TAKE SOME DEEP BREATHS SHE CAME BACK TO THE MID 90'S. REPORT WAS GIVEN TO MOUNA KAY IN PCU AND PT WAS TRANSFERRED TO PCU 11. SHE WAS MOVED WITH 4 PERSON SLIDE TO HER NEW BED. SHE REMAINED ABLE TO CARRY ON FULL CONVERSATIONS. SHE CONTINUES WITH NO DESIRE TO KNOW THE YEAR OR RECITE THE PRESIDENT. SHE CAN TELL YOU ALL ABOUT CERTAIN TV PROGRAMS WITHOUT MISSING A BEAT. NO FURTHER CHANGES.
--- NOTE | 2021-11-17 05:54 | NUR ---
SHIFT SUMMARY NO ACUTE CHANGES THIS SHIFT. PT ALERT, PLEASANT. SP02>90% ON 2L NC. TELEMETRY SHOWS NSR, HR MOSTLY 60'S. PT SLIGHTLY FEBRILE, TYLENOL GIVEN X1. MEDS GIVEN WHOLE, IN APPLESAUCE W/ NO ISSUES. CALL LIGHT IN REACH. PT SLEPT MOST OF NIGHT.
--- NOTE | 2021-11-17 10:15 | NUR ---
AM Note Assumed care of patient at approx 0700. Pt Alert, oriented x3; calm and cooperative with care. Pt denies pain, chest pain/pressure, sob, nausea, dizziness and numb/tingling. Pt ls clear, dim in bases, spo2 >90% on 2l o2 via nc, titrated to ra, breathing even and unlabored. Tele sinus, bp stable. Abd soft, nontender; diarrhea noted. Temp 100.0, medicated per emar. ST at bedside this am, continue with current plans. Other vss. No other acute changes noted. Will continue to monitor.
--- NOTE | 2021-11-17 16:18 | NUR ---
Transfer note No acute changes noted. Sewell removed this afternoon, pt had incontinent episode this evening. Physical therapy continues to reccomend SNF. Vss. Telephone report given to richard Leslie assuming care of patient. Pt transfered to room 301 at approx 1620.
--- NOTE | 2021-11-17 16:48 | NUR ---
EXECUTIVE BUSINESS COACH NOTE MS BREWER TRANSFERED FROM PCU TO [facility] ON HER BED. PT ALERT, ORIENTATED TO SELF, DATE, MMC AND SITUATION. 3 LUMEN PICC LINE DRESSING CHANGED, STATLOCK CHANGED, CAPS CHANGED AND EACH LUMEN FLUSHED WITH 10CC NS. SPEACH SLOW BUT APPROPRIATE. 2 PERSON ASSIST TO TURN IN BED. HAS DEPENDS IN PLACE, DRY AT THIS TIME, INCONT PER REPORT.
[2021-11-18 04:58] LABS: Hematocrit 29.6 % (33.0-51.0); Hemoglobin 9.4 g/dL (11.5-16.0); Mean Corpuscular HGB 28.9 pg (26.0-34.0); Mean Corpuscular HGB Conc 31.8 g/dL (31.5-36.5); Mean Corpuscular Volume 91 fL (80-100); Mean Platelet Volume 9.6 fL (9.1-12.4); Platelet Count 399 K/mm3 (150-400); RDW Coefficient Variation 14.1 % (11.7-14.2); RDW Standard Deviation 46.3 fL (35.1-46.3); Red Blood Cell Count 3.25 M/mm3 (3.80-5.20); White Blood Cell Count 8.27 K/mm3 (4.00-11.30)
[2021-11-18 05:19] LABS: Albumin, Blood 2.4 g/dL (3.4-5.0); Anion Gap 6 mmol/L (6-16); Blood Urea Nitrogen 23 mg/dL (8-24); Bun/Creatinine Ratio 25.4 (12.0-20.0); CO2, Blood 28 mmol/L (21-32); Calcium, Blood 8.5 mg/dL (8.5-10.1); Chloride, Blood 109 mmol/L (98-108); Creatinine, Blood 0.91 mg/dL (0.40-1.00); Glomerular Filtration Rate 69 (60-); Glucose, Blood 93 mg/dL (70-99); Potassium, Blood 3.7 mmol/L (3.5-5.5); Sodium, Blood 143 mmol/L (136-145)
--- NOTE | 2021-11-18 05:38 | NUR ---
SHIFT SUMMARY: PATIENT IS A&O TO SELF AND PLACE, VSS. POOR APPETITE, ONLY BITES FOR DINNER. TAKING PILLS CRUSHED IN APPLE SAUCE WITH NO SWALLOWING DIFFICULTIES. INC. OF URINE AT TIMES AND ALSO USES BED DYKES. BED ALARM IS ON.
[2021-11-18 13:20] LABS: Influenza A, PCR NEGATIVE (NEGATIVE); Influenza B, PCR NEGATIVE (NEGATIVE); Resp Syncytial Virus, PCR NEGATIVE (NEGATIVE); SARS-Cov-2 (COVID-19) PCR, MMC NEGATIVE (NEGATIVE)
--- NOTE | 2021-11-18 14:52 | NUR ---
pt was Seen she has no complaints worked well with PT this morning. Daughter in to review plan of care. We discussed a polst pt was DNR and changed back to full code. Daughter states she looks good today but the past few weeks she has been declining. She stated that today the nurse at [facility] discussed hospice as an option. We discussed quality of life and plans of care upt and including hospice. Suggested she read [facility] book and complete a polst and have the staff who sees her daily help with a decision of hospice. She did well with rehab care may be able to optimze her mobility. I updated [facility] hospice on discussion. ANd zacarias will follow. The goal is to keep her from going to ER and hospital frequently and support her aging process.
--- NOTE | 2021-11-18 15:19 | NUR ---
SHIFT SUMMARY NO ACUTE EVENTS. PTN ALERT AND ORIENTED X2, USED WALKER AT HOME WITH ASSIST. LIVES IN ASSISTED LIVING. BEDREST WHILE HERE. PTN DOING WELL WITH MEALS AND SWALLOWING ON SOFT MECHANICAL DIET. MARTI OUT YESTERDAY, NO NOTED PROBLEMS TODAY. PTN DOES HAVE LOWER EXTREMITY EDEMA, NONPITTING. PTN TO DISCHARGE BACK TO ASSISTED LIVING WITH FOLLOW-UP THERAPY IN THAT SETTING.
[2021-11-18] MEDS ORDERED: LISI5 PO (15:57)
[2021-11-18] MEDS ORDERED: CARV3.125 PO (15:57)
[2021-11-18] MEDS ORDERED: FURO20 PO (15:58)
== END 2021-11-18 16:45 | disposition home health service (06) | DRG 870 ==
LOC: ER 12:23 → ICUE 15:50 → ICUW 15:50 → ICUE 15:52 → PCU 11-16 18:38 → MEDS 11-17 16:26
PROVIDERS: Emergency Medicine; Internal Medicine; Internal Medicine Critical Care Medicine; ADMIT Internal Medicine
PROC: 3E03329 Introduction of Other Anti-infective into Peripheral Vein, Percutaneous Approach (ICD-10-PCS; principal; 2021-11-10)
PROC: 0BH18EZ Insertion of Endotracheal Airway into Trachea, Via Natural or Artificial Opening Endoscopic (ICD-10-PCS; 2021-11-10)
PROC: 5A1955Z Respiratory Ventilation, Greater than 96 Consecutive Hours (ICD-10-PCS; 2021-11-10)
PROC: 3E033XZ Introduction of Vasopressor into Peripheral Vein, Percutaneous Approach (ICD-10-PCS; 2021-11-10)
PROC: 02HV33Z Insertion of Infusion Device into Superior Vena Cava, Percutaneous Approach (ICD-10-PCS; 2021-11-10)
DX: A41.9 Sepsis, unspecified organism (principal); J18.9 Pneumonia, unspecified organism; J69.0 Pneumonitis due to inhalation of food and vomit; R65.21 Severe sepsis with septic shock; J96.01 Acute respiratory failure with hypoxia; I50.21 Acute systolic (congestive) heart failure; N17.9 Acute kidney failure, unspecified; J44.0 Chronic obstructive pulmonary disease with (acute) lower respiratory infection; I13.0 Hypertensive heart and chronic kidney disease with heart failure and stage 1 through stage 4 chronic kidney disease, or unspecified chronic kidney disease; Z20.822 Contact with and (suspected) exposure to COVID-19; Z51.5 Encounter for palliative care; Z78.1 Physical restraint status; E87.6 Hypokalemia; E83.39 Other disorders of phosphorus metabolism; E87.70 Fluid overload, unspecified; E03.9 Hypothyroidism, unspecified; E11.40 Type 2 diabetes mellitus with diabetic neuropathy, unspecified; E83.52 Hypercalcemia; F01.50 Vascular dementia, unspecified severity, without behavioral disturbance, psychotic disturbance, mood disturbance, and anxiety; E83.42 Hypomagnesemia; N18.30 Chronic kidney disease, stage 3 unspecified; E11.22 Type 2 diabetes mellitus with diabetic chronic kidney disease; D50.9 Iron deficiency anemia, unspecified; I27.20 Pulmonary hypertension, unspecified; I07.1 Rheumatic tricuspid insufficiency; Z86.73 Personal history of transient ischemic attack (TIA), and cerebral infarction without residual deficits; Z90.89 Acquired absence of other organs; Z90.710 Acquired absence of both cervix and uterus; Z88.0 Allergy status to penicillin; Z87.891 Personal history of nicotine dependence; Z79.82 Long term (current) use of aspirin; Z79.899 Other long term (current) drug therapy
CPT/HCPCS: 0241U; 31515; 36415; 36569; 36600; 51702; 71045; 80048; 80053; 80069; 81001; 82330; 82533; 82803; 82947; 83605; 83735; 84100; 85025; 85027; 87040; 87070; 87086; 87205; 87493; 87507; 92526; 92610; 93005; 93010; 93971; 94003; 94760; 94762; 96365-59; 97110; 97162; 97530; 99291-25; A9270; C1751; C1894; C8929; C9113; J0610; J0696; J1650; J1940; J1956; J2060; J2704; J3010; J3475; J3480; J7030; J7050; J7060; J7120; Q9957

== ENCOUNTER → 2022-01-21 | Outpatient (CLI) | payer MEDICARE, OTHER ==
[~2022-01-21] MED LIST changes: +AMLO5 PO; +ASPI325EC PO; +ATOR40TA PO; +CARV3.125 PO; +FURO20 PO; +LISI5 PO; +Lexapro 10 mg T10 MG PO; +MULVITA PO; +PANT40 PO; +SENNA LAXATIVE8.6 MG PO; +Synthroid200 MCG PO; +VITAMIN D31000 UNI1 PO
[2022-01-21 13:30] LABS: Albumin, Blood 3.1 g/dL (3.4-5.0); Albumin/Globulin Ratio 0.9 (0.8-1.8); Bilirubin, Total 0.4 mg/dL (0.1-1.0); Calcium, Blood 8.9 mg/dL (8.5-10.1); Creatinine, Blood 0.95 mg/dL (0.40-1.00); Globulin, Blood 3.6 g/dL (2.2-4.0); Potassium, Blood 4.4 mmol/L (3.5-5.5); Total Protein, Blood 6.7 g/dL (6.4-8.2)
== END | disposition home or self-care (01) ==
LOC: LAB SHORT 11:27
PROVIDERS: Nurse Practitioner Family
DX: R60.9 Edema, unspecified (principal)
CPT/HCPCS: 80053

== ENCOUNTER → 2022-04-27 | Outpatient (CLI) | payer MEDICARE, OTHER ==
[2022-04-28 12:21] LABS: Source, Urine Clean Catch
[2022-04-28 13:20] LABS: Appearance, Urine Hazy (Clear); Bilirubin, Urine Neg (Neg); Blood, Urine 1+ (Neg); Color, Urine Yellow (P-Yellow); Glucose Qualitative, Urine Neg (Neg); Ketones, Urine Neg (Neg); Leukocyte Esterase, Urine 2+ (Neg); Nitrite, Urine Pos (Neg); Protein, Urine 1+ (Neg); Specific Gravity, Urine 1.015 (1.003-1.022); Urobilinogen, Urine NORM (Normal)
[2022-04-28 13:28] LABS: Bacteria Many /hpf; Hyaline Casts 0-2 /lpf (0-2); Renal Epithelial Rare /hpf (0-Rare); Squamous Epithelial Cells Mod /hpf (Few)
== END | disposition home or self-care (01) ==
LOC: LAB SHORT 21:00
PROVIDERS: Nurse Practitioner Family
DX: N39.0 Urinary tract infection, site not specified (principal)
CPT/HCPCS: 81001; 87077; 87086; 87186

== ENCOUNTER → 2022-05-12 | Outpatient (CLI) | payer MEDICARE, OTHER ==
[2022-05-12 13:06] LABS: Appearance, Urine Hazy (Clear); Bilirubin, Urine Neg (Neg); Blood, Urine 1+ (Neg); Color, Urine Yellow (P-Yellow); Glucose Qualitative, Urine Neg (Neg); Ketones, Urine Neg (Neg); Leukocyte Esterase, Urine 3+ (Neg); Nitrite, Urine Pos (Neg); Protein, Urine Neg (Neg); Specific Gravity, Urine 1.015 (1.003-1.022); Urobilinogen, Urine NORM (Normal)
[2022-05-12 13:14] LABS: White Blood Cells, Urine 50-100 /hpf (0-5)
[2022-05-12 13:16] LABS: Bacteria Many /hpf; Squamous Epithelial Cells Rare /hpf (Few)
== END ==
LOC: LAB SHORT 09:00
PROVIDERS: Nurse Practitioner Family
DX: N39.0 Urinary tract infection, site not specified (principal)
CPT/HCPCS: 81001; 87077; 87086; 87186

== ENCOUNTER 2022-11-13 11:31 | Emergency (ER) | payer MEDICARE, OTHER ==
[~2022-11-13] VITALS: Ht 172.7 cm; Wt 95.2 kg
[2022-11-13 11:33] VITALS: BP 161/78
[2022-11-13 12:35] LABS: BASOPHILS ABSOLUTE AUTO 0.03 K/mm3 (0.00-0.23); BASOPHILS PERCENT AUTO 0 % (0-2); EOSINOPHILS ABSOLUTE AUTO 0.18 K/mm3 (0.00-0.68); EOSINOPHILS PERCENT AUTO 2 % (0-6); Hematocrit 34.7 % (33.0-51.0); Hemoglobin 11.5 g/dL (11.5-16.0); IMMATURE GRAN ABSOLUTE AUTO 0.02 K/mm3 (0.00-0.10); IMMATURE GRAN PERCENT AUTO 0 % (0-1); LYMPHOCYTES ABSOLUTE AUTO 1.54 K/mm3 (0.84-5.20); LYMPHOCYTES PERCENT AUTO 19 % (21-46); MONOCYTES ABSOLUTE AUTO 0.67 K/mm3 (0.16-1.47); MONOCYTES PERCENT AUTO 8 % (4-13); Mean Corpuscular HGB Conc 33.1 g/dL (31.5-36.5); Mean Corpuscular Volume 87 fL (80-100); Mean Platelet Volume 9.2 fL (9.1-12.4); NEUTROPHILS ABSOLUTE AUTO 5.81 K/mm3 (1.96-9.15); NEUTROPHILS PERCENT AUTO 70 % (41-73); Platelet Count 400 K/mm3 (150-400); RDW Standard Deviation 44.8 fL (35.1-46.3); Red Blood Cell Count 3.97 M/mm3 (3.80-5.20); White Blood Cell Count 8.25 K/mm3 (4.00-11.30)
[2022-11-13 12:57] LABS: Albumin, Blood 2.8 g/dL (3.4-5.0); Albumin/Globulin Ratio 0.6 (0.8-1.8); Bilirubin, Total 0.3 mg/dL (0.1-1.0); Bun/Creatinine Ratio 22.6 (12.0-20.0); Calcium, Blood 8.7 mg/dL (8.5-10.1); Creatinine, Blood 0.98 mg/dL (0.40-1.00); Globulin, Blood 4.4 g/dL (2.2-4.0); Potassium, Blood 4.4 mmol/L (3.5-5.5); Total Protein, Blood 7.2 g/dL (6.4-8.2)
[2022-11-13] MEDS ORDERED: DOXY100 PO (13:48)
== END 2022-11-13 16:17 | disposition home or self-care (01) ==
LOC: ER 11:31
PROVIDERS: Emergency Medicine
DX: L03.031 Cellulitis of right toe (principal); E03.9 Hypothyroidism, unspecified; E78.5 Hyperlipidemia, unspecified; E11.9 Type 2 diabetes mellitus without complications; I10 Essential (primary) hypertension; F17.200 Nicotine dependence, unspecified, uncomplicated; Z88.0 Allergy status to penicillin; Z79.82 Long term (current) use of aspirin; Z79.890 Hormone replacement therapy; Z79.899 Other long term (current) drug therapy
CPT/HCPCS: 73660; 80053; 85025; 99284-25; A9270

== ENCOUNTER → 2024-10-15 | Outpatient (CLI) | payer MEDICARE, OTHER ==
[~2024-10-15] MED LIST changes: +DOXY100 PO
[2024-10-15 18:40] LABS: Appearance, Urine Clear (Clear); Bilirubin, Urine Neg (Neg); Blood, Urine Neg (Neg); Glucose Qualitative, Urine Neg (Neg); Ketones, Urine Neg (Neg); Leukocyte Esterase, Urine Neg (Neg); Nitrite, Urine Neg (Neg); Protein, Urine Neg (Neg); Urobilinogen, Urine NORM (Normal)
[2024-10-15 18:52] LABS: Color, Urine Pale Yellow (P-Yellow)
== END ==
LOC: LAB 13:00 → LAB SHORT 13:00
PROVIDERS: Nurse Practitioner Family
DX: N39.0 Urinary tract infection, site not specified (principal)
CPT/HCPCS: 81003

== ENCOUNTER → 2025-02-28 | Outpatient (CLI) | payer MEDICARE, OTHER ==
[2025-02-28 15:35] LABS: Source, Urine Clean Catch
[2025-02-28 15:55] LABS: Bilirubin, Urine Neg (Neg); Color, Urine Yellow (P-Yellow); Glucose Qualitative, Urine Neg (Neg); Ketones, Urine Neg (Neg); Leukocyte Esterase, Urine Neg (Neg); Protein, Urine Neg (Neg); Specific Gravity, Urine 1.010 (1.003-1.022); Urobilinogen, Urine NORM (Normal)
== END ==
LOC: LAB 15:33 → LAB SHORT 15:33
PROVIDERS: Nurse Practitioner Family
DX: N39.0 Urinary tract infection, site not specified (principal)
CPT/HCPCS: 81003

== ENCOUNTER → 2025-03-07 | Outpatient (CLI) | payer MEDICARE, OTHER ==
[2025-03-07 12:14] LABS: Source, Urine Clean Catch
[2025-03-07 13:18] LABS: Bilirubin, Urine Neg (Neg); Color, Urine Yellow (P-Yellow); Glucose Qualitative, Urine Neg (Neg); Ketones, Urine Neg (Neg); Leukocyte Esterase, Urine Neg (Neg); Protein, Urine Neg (Neg); Specific Gravity, Urine 1.010 (1.003-1.022); Urobilinogen, Urine NORM (Normal)
== END ==
LOC: LAB 12:12 → LAB SHORT 12:12
PROVIDERS: Nurse Practitioner Family
DX: N39.0 Urinary tract infection, site not specified (principal)
CPT/HCPCS: 81003